=== PATIENT | female | born 1960 | race Caucasian/White ===

== ENCOUNTER → 2016-05-07 | Outpatient (REF) | payer MEDICARE, OTHER ==
[~2016-05-07] MED LIST: /AUGM875TA; /PANT40TA; ADVIL; ALDA25TA2; ASPI1TAB PO; CALCIUM CARBONATE; CHOLECALCIFEROL; DEMA100T; FAMO20TA2; FOLI1TAB; HYDR25TA6; HYDROCODONE; IBUPROFEN; IRON CR; IRONTAB3; K-TA10TA; LASI20TA; LASI40TA; LEVO25TABR; LEVO75TA2; LEVO75TA4 PO; LEVO88TA4; LOPR50TA; MEDR8TAB; PENI500T; PRED10TA2 PO; PRED20TA; PRED50TA2 PO; PRED5TAB; PROCHLORPERAZINE; RENA800T; RITU10VLL IV; SODIUM BICARBONATE; SYNT88TA2 PO; THERGRAN; TORSEMIDE; TRAM50TA2; TRIPLE OMEGA; VITA400C; VITAMIN D; [UNRECOGNIZED DRUG - CODE]; patanol
[2016-05-07 13:06] LABS: RETIC HEMOGLOBIN CONTENT CHr 30.1 PG (24-36); RETICULOCYTE % ADVIA2120 1.2 % (0.5-1.5)
[2016-05-07 19:41] LABS: IMMUNOGLOBULIN A 52.1 MG/DL (70-400)
[2016-05-07 20:52] LABS: IMMUNOGLOBULIN M 16.5 MG/DL (40-230)
[2016-05-09 00:06] LABS: % CD3+ LYMPHS 89.5 % (57.5-86.2); %CD3+CD4+CD8+ 0.6 % (Not Estab.); %CD3+CD4+CD8- 66.4 % (Not Estab.); %CD3+CD4-CD8+ 21.8 % (Not Estab.); %CD3+CD4-CD8- 0.6 % (Not Estab.); %CD3+CD56+CD16+ 4.1 % (Not Estab.); ABS CD3+CD4+CD8+ 6 /uL (Not Estab.); ABS CD3+CD4+CD8- 664 /uL (Not Estab.); ABS CD3+CD4-CD8+ 218 /uL (Not Estab.); ABS CD3+CD4-CD8- 6 /uL (Not Estab.); ABS CD3+CD56+CD16+ 41 /uL (Not Estab.); ABSOLUTE CD4 HELPER 671 /uL (359-1519); BASOPHILS 1 % (.); CD4/CD8 NYSDOH RATIO 3.05 (Not Estab.); EOSINOPHILS 2 % (.); HCT 46.2 % (34.0-46.6); HGB 15.4 g/dL (11.1-15.9); LYMPHOCYTES 23 % (.); MONOCYTES ABSOLUTE 0.5 x10E3/uL (0.1-0.9); WBC 4.4 x10E3/uL (3.4-10.8)
== END ==
LOC: M LAB REF 12:38
PROVIDERS: ATTEND Internal Medicine Medical Oncology
DX: D47.Z2 Castleman disease (principal); M06.9 Rheumatoid arthritis, unspecified; D64.9 Anemia, unspecified

== ENCOUNTER → 2016-07-02 | Outpatient (REF) | payer MEDICARE, OTHER ==
[2016-07-02 14:27] LABS: IMMUNOGLOBULIN A 54.3 MG/DL (70-400)
[2016-07-02 15:23] LABS: IMMUNOGLOBULIN M 16.1 MG/DL (40-230)
== END ==
LOC: M LAB REF 12:22
PROVIDERS: ATTEND Internal Medicine Medical Oncology
DX: M35.9 Systemic involvement of connective tissue, unspecified (principal)

== ENCOUNTER → 2016-09-06 | Outpatient (REF) | payer MEDICARE, OTHER ==
[2016-09-06 12:54] LABS: MEAN CORPUSCULAR HEMOGLOBIN 29.1 pg (27.0-33.0); MEAN CORPUSCULAR HGB CONC 32.9 g/dl (32.0-36.5); MEAN CORPUSCULAR VOLUME 88.6 fl (80.0-96.0); RED CELL DISTRIBUTION WIDTH 12.3 % (11.5-14.5); WHITE BLOOD COUNT 4.5 K/mm3 (4.0-10.0)
[2016-09-06 13:11] LABS: ALBUMIN 4.4 GM/DL (3.2-5.2); ALBUMIN/GLOBULIN RATIO 1.83 (1.00-1.93); ALKALINE PHOSPHATASE 61 U/L (45-117); ALT/SGPT 28 U/L (12-78); ANION GAP 11 MEQ/L (8-16); AST/SGOT 21 U/L (15-37); BILIRUBIN,TOTAL 0.7 MG/DL (0.2-1.0); BLOOD UREA NITROGEN 14 MG/DL (7-18); CALCIUM LEVEL 9.1 MG/DL (8.5-10.1); CARBON DIOXIDE LEVEL 22 MEQ/L (21-32); CHLORIDE LEVEL 108 MEQ/L (98-107); CHOLESTEROL LEVEL 251 MG/DL (<200); CREATININE FOR GFR 0.74 MG/DL (0.55-1.02); GLOMERULAR FILTRATION RATE > 60.0 (>51); GLUCOSE, FASTING 91 MG/DL (70-105); POTASSIUM SERUM 4.4 MEQ/L (3.5-5.1); SODIUM LEVEL 141 MEQ/L (136-145); TOTAL PROTEIN 6.8 GM/DL (6.4-8.2); TRIGLYCERIDES LEVEL 136 MG/DL (<150)
== END ==
LOC: M SFHCPLAZ 07:58
PROVIDERS: ATTEND Family Medicine
DX: D75.1 Secondary polycythemia (principal); Z13.220 Encounter for screening for lipoid disorders; N18.2 Chronic kidney disease, stage 2 (mild); E03.9 Hypothyroidism, unspecified

== ENCOUNTER → 2017-05-01 | Outpatient (REF) | payer MEDICARE, OTHER ==
[2017-05-01 14:39] LABS: IMMUNOGLOBULIN G 499 MG/DL (681-1648)
== END ==
LOC: M LAB REF 13:33
DX: D47.Z2 Castleman disease (principal); M06.9 Rheumatoid arthritis, unspecified
CPT/HCPCS: 82784

== ENCOUNTER → 2017-09-29 | Outpatient (REF) | payer MEDICARE, OTHER ==
[2017-09-29 19:10] LABS: IMMUNOGLOBULIN G 434 MG/DL (681-1648)
== END ==
LOC: M LAB REF 18:09
DX: D59.1 Other autoimmune hemolytic anemias (principal); D47.Z2 Castleman disease; M06.9 Rheumatoid arthritis, unspecified
CPT/HCPCS: 82784

== ENCOUNTER → 2017-10-16 | Outpatient (REF) | payer MEDICARE, OTHER ==
[2017-10-16 12:58] LABS: HEMATOCRIT 44.9 % (36.0-47.0); HEMOGLOBIN 14.3 g/dl (12.0-15.5); MEAN CORPUSCULAR HEMOGLOBIN 27.7 pg (27.0-33.0); MEAN CORPUSCULAR HGB CONC 31.8 g/dl (32.0-36.5); PLATELET COUNT, AUTOMATED 273 10^3/uL (150-450); RED BLOOD COUNT 5.16 10^6/uL (4.00-5.40); RED CELL DISTRIBUTION WIDTH 12.8 % (11.5-14.5); WHITE BLOOD COUNT 5.6 10^3/uL (4.0-10.0)
[2017-10-16 13:19] LABS: ANION GAP 7 MEQ/L (8-16); BLOOD UREA NITROGEN 14 MG/DL (7-18); CALCIUM LEVEL 8.8 MG/DL (8.5-10.1); CARBON DIOXIDE LEVEL 27 MEQ/L (21-32); CHLORIDE LEVEL 108 MEQ/L (98-107); CREATININE FOR GFR 0.65 MG/DL (0.55-1.30); GLOMERULAR FILTRATION RATE > 60.0 (>51); GLUCOSE, FASTING 80 MG/DL (70-100); PHOSPHORUS LEVEL 3.7 MG/DL (2.5-4.9); POTASSIUM SERUM 4.2 MEQ/L (3.5-5.1); SODIUM LEVEL 142 MEQ/L (136-145); THYROID STIMULATING HORMONE 0.233 uIU/ML (0.358-3.740)
== END ==
LOC: M LABDRWAD 12:20
DX: D75.1 Secondary polycythemia (principal); N18.2 Chronic kidney disease, stage 2 (mild); E03.9 Hypothyroidism, unspecified
CPT/HCPCS: 84443

== ENCOUNTER → 2018-03-09 | Outpatient (REF) | payer MEDICARE, OTHER ==
[2018-03-09 13:55] LABS: FREE T4 1.21 NG/DL (0.76-1.46); THYROID STIMULATING HORMONE 0.249 uIU/ML (0.358-3.740)
== END ==
LOC: M SFHCADAM 09:57
DX: E03.9 Hypothyroidism, unspecified (principal)
CPT/HCPCS: 84443

== ENCOUNTER → 2018-06-12 | Outpatient (REF) | payer MEDICARE, OTHER ==
[2018-06-12 12:49] LABS: FREE T4 1.31 NG/DL (0.76-1.46); THYROID STIMULATING HORMONE 0.789 uIU/ML (0.358-3.740)
== END ==
LOC: M SFHCADAM 09:34
PROVIDERS: ATTEND Family Medicine
DX: E03.9 Hypothyroidism, unspecified (principal)

== ENCOUNTER → 2018-12-09 | Outpatient (CLI) | payer MEDICARE, OTHER ==
[~2018-12-09] MED LIST changes: -/PANT40TA; +ALCO1MED8; +ALEV220T22 PO; -ASPI1TAB PO; +ASPI81TA26 PO; +BD P0.9I2 IV; +C 50TAB PO; +HEPA100I8 IV; +IPRA0.00 INH; +LEVO50TA45 PO; +PROT1TAB2; +VENTAER INH; +VITA100066 PO; +[UNRECOGNIZED DRUG - SUPPLY]
[2018-12-09 12:55] LABS: APPEARANCE, URINE CLEAR (CLEAR); BACTERIA, URINE AUTO NEGATIVE (NEGATIVE); BILIRUBIN, URINE AUTO NEGATIVE (NEGATIVE); BLOOD, URINE BLOOD NEGATIVE (NEGATIVE); COLOR, URINE STRAW (YELLOW); GLUCOSE, URINE (UA) AUTO NEGATIVE (NEGATIVE); KETONE, URINE AUTO NEGATIVE (NEGATIVE); LEUKOCYTE ESTERASE, URINE AUTO NEGATIVE (NEGATIVE); NITRITE, URINE AUTO NEGATIVE (NEGATIVE); PROTEIN, URINE AUTO NEGATIVE (NEGATIVE); RBC, URINE AUTO 0 /HPF (0-3); SPECIFIC GRAVITY URINE AUTO 1.001 (1.002-1.035); SQUAMOUS EPITHELIAL CELL UR AU 0 /HPF (0-6); UROBILINOGEN, URINE AUTO 0.2 mg/dL (0.0-2.0); WBC, URINE AUTO 0 /HPF (0-3)
[2018-12-09 13:18] LABS: ALBUMIN 4.1 GM/DL (3.2-5.2); BLOOD UREA NITROGEN 16 MG/DL (7-18); CARBON DIOXIDE LEVEL 25 MEQ/L (21-32); CHLORIDE LEVEL 106 MEQ/L (98-107); CREATININE FOR GFR 0.85 MG/DL (0.55-1.30); GLOMERULAR FILTRATION RATE > 60.0 (>51); GLUCOSE, FASTING 78 MG/DL (70-100); PHOSPHORUS LEVEL 3.8 MG/DL (2.5-4.9); POTASSIUM SERUM 4.7 MEQ/L (3.5-5.1); SODIUM LEVEL 140 MEQ/L (136-145)
[2018-12-09 13:38] LABS: PTH INTACT 59.9 PG/ML (18.5-88.0)
== END ==
LOC: M LABDRWAD 10:19
PROVIDERS: ATTEND Internal Medicine Nephrology
DX: N18.2 Chronic kidney disease, stage 2 (mild) (principal); D63.8 Anemia in other chronic diseases classified elsewhere; N25.81 Secondary hyperparathyroidism of renal origin; E55.9 Vitamin D deficiency, unspecified

== ENCOUNTER → 2018-12-09 | Outpatient (REF) | payer MEDICARE, OTHER ==
[~2018-12-09] MED LIST changes: -ALCO1MED8; -ALEV220T22 PO; -BD P0.9I2 IV; -C 50TAB PO; -HEPA100I8 IV; -IPRA0.00 INH; -LEVO50TA45 PO; -VENTAER INH; -VITA100066 PO; -[UNRECOGNIZED DRUG - SUPPLY]
[2018-12-09 12:52] LABS: HEMATOCRIT 51.3 % (36.0-47.0); HEMOGLOBIN 16.2 g/dl (12.0-15.5); MEAN CORPUSCULAR HEMOGLOBIN 27.1 pg (27.0-33.0); MEAN CORPUSCULAR HGB CONC 31.6 g/dl (32.0-36.5); MEAN CORPUSCULAR VOLUME 85.8 fl (80.0-96.0); PLATELET COUNT, AUTOMATED 141 10^3/uL (150-450); RED BLOOD COUNT 5.98 10^6/uL (4.00-5.40); WHITE BLOOD COUNT 6.3 10^3/uL (4.0-10.0)
[2018-12-09 13:14] LABS: ERYTHROCYTE SEDIMENTATION RATE 2 mm/hr (0-30)
[2018-12-09 14:00] LABS: ALBUMIN 4.2 GM/DL (3.2-5.2); ALT/SGPT 28 U/L (12-78); BILIRUBIN,TOTAL 0.7 MG/DL (0.2-1.0); BLOOD UREA NITROGEN 16 MG/DL (7-18); C REACTIVE PROTEIN QUANTITATIV 0.56 MG/DL (0.00-0.30); CALCIUM LEVEL 9.2 MG/DL (8.5-10.1); CARBON DIOXIDE LEVEL 28 MEQ/L (21-32); CHLORIDE LEVEL 107 MEQ/L (98-107); CHOLESTEROL LEVEL 192 MG/DL (<200); CHOLESTEROL RISK RATIO 3.764 (<5); CREATININE FOR GFR 0.81 MG/DL (0.55-1.30); FREE T4 1.31 NG/DL (0.76-1.46); GLOMERULAR FILTRATION RATE > 60.0 (>51); GLUCOSE, FASTING 80 MG/DL (70-100); HDL CHOLESTEROL 51 MG/DL (>40); LDL CHOLESTEROL 122 MG/DL (<100); NON-HDL-C 141 MG/DL; POTASSIUM SERUM 4.5 MEQ/L (3.5-5.1); SODIUM LEVEL 139 MEQ/L (136-145); TOTAL 25(OH) VITAMIN D 32.9 NG/ML (30.0-100.0); TOTAL PROTEIN 6.8 GM/DL (6.4-8.2); TRIGLYCERIDES LEVEL 93 MG/DL (<150)
== END ==
LOC: M SFHCADAM 10:14
PROVIDERS: ATTEND Family Medicine
DX: D75.1 Secondary polycythemia (principal); E78.00 Pure hypercholesterolemia, unspecified; E55.9 Vitamin D deficiency, unspecified; N18.2 Chronic kidney disease, stage 2 (mild); R59.9 Enlarged lymph nodes, unspecified; M06.041 Rheumatoid arthritis without rheumatoid factor, right hand; E03.9 Hypothyroidism, unspecified; D63.8 Anemia in other chronic diseases classified elsewhere; N25.81 Secondary hyperparathyroidism of renal origin

== ENCOUNTER 2018-12-31 10:24 | Emergency (ER) | payer MEDICARE, OTHER ==
[~2018-12-31] VITALS: Ht 165.1 cm; Wt 61.8 kg
[2018-12-31 11:27] LABS: BASO # 0.1 10^3/uL (0.0-0.2); BASO % 1.1 % (0.0-1.0); EOS # 0.2 10^3/uL (0.0-0.5); EOS % 2.5 % (0.0-3.0); HEMATOCRIT 48.3 % (36.0-47.0); HEMOGLOBIN 15.4 g/dl (12.0-15.5); LYMPH # 1.3 10^3/uL (1.5-5.0); LYMPH % 17.1 % (24.0-44.0); MEAN CORPUSCULAR HEMOGLOBIN 27.8 pg (27.0-33.0); MEAN CORPUSCULAR HGB CONC 31.9 g/dl (32.0-36.5); MEAN CORPUSCULAR VOLUME 87.2 fl (80.0-96.0); MONO # 0.9 10^3/uL (0.0-0.8); MONO % 11.4 % (0.0-5.0); NEUTROPHILS # 5.1 10^3/uL (1.5-8.5); NEUTROPHILS % 67.6 % (36.0-66.0); PLATELET COUNT, AUTOMATED 191 10^3/uL (150-450); RED BLOOD COUNT 5.54 10^6/uL (4.00-5.40); WHITE BLOOD COUNT 7.6 10^3/uL (4.0-10.0)
[2018-12-31 11:52] LABS: ALBUMIN 3.9 GM/DL (3.2-5.2); ALT/SGPT 21 U/L (12-78); BILIRUBIN,TOTAL 0.5 MG/DL (0.2-1.0); BLOOD UREA NITROGEN 22 MG/DL (7-18); C REACTIVE PROTEIN QUANTITATIV 0.76 MG/DL (0.00-0.30); CARBON DIOXIDE LEVEL 30 MEQ/L (21-32); CHLORIDE LEVEL 105 MEQ/L (98-107); CREATININE FOR GFR 0.73 MG/DL (0.55-1.30); GLOMERULAR FILTRATION RATE > 60.0 (>51); GLUCOSE, FASTING 89 MG/DL (70-100); POTASSIUM SERUM 4.7 MEQ/L (3.5-5.1); SODIUM LEVEL 139 MEQ/L (136-145); TOTAL PROTEIN 6.2 GM/DL (6.4-8.2)
--- NOTE | 2018-12-31 12:40 | REP ---
Left lower extremity deep vein duplex ultrasound: The deep veins demonstrate normal compression, normal Doppler color flow and normal Doppler waveforms with respiration and augmentation from the popliteal vein to the common femoral vein. Impression: There is no lower extremity deep vein thrombus. Electronically Signed by Shay Fraga MD 12/31/2018 12:31 P
--- NOTE | 2018-12-31 12:47 | REP ---
ULTRASOUND LEFT ANKLE SOFT TISSUES: Real-time sonographic evaluation of the left ankle soft tissues performed. There are echogenic areas scattered throughout the soft tissues with marked distal acoustic shadowing. These may represent calcifications. No focal fluid collection is seen. IMPRESSION: Possible soft tissue calcifications. No visible fluid collection or abscess. Electronically Signed by Shay Bullock MD 12/31/2018 05:38 P
[2018-12-31 13:22] LABS: ERYTHROCYTE SEDIMENTATION RATE 6 mm/hr (0-30)
[2018-12-31 13:30] VITALS: BP 100/55
== END 2018-12-31 13:31 | disposition home or self-care (01) ==
LOC: M ED 10:24
DX: M79.9 Soft tissue disorder, unspecified (principal); D47.Z2 Castleman disease; Z88.0 Allergy status to penicillin; Z88.1 Allergy status to other antibiotic agents; Z88.2 Allergy status to sulfonamides; Z88.6 Allergy status to analgesic agent; Z79.899 Other long term (current) drug therapy; Z83.79 Family history of other diseases of the digestive system

== ENCOUNTER → 2019-02-10 | Outpatient (CLI) | payer MEDICARE, OTHER ==
[2019-02-10 15:03] LABS: BASO # 0.1 10^3/uL (0.0-0.2); BASO % 1.3 % (0.0-1.0); EOS # 0.2 10^3/uL (0.0-0.5); EOS % 2.5 % (0.0-3.0); HEMATOCRIT 46.7 % (36.0-47.0); HEMOGLOBIN 15.1 g/dl (12.0-15.5); LYMPH # 1.7 10^3/uL (1.5-5.0); LYMPH % 21.1 % (24.0-44.0); MEAN CORPUSCULAR HEMOGLOBIN 27.3 pg (27.0-33.0); MEAN CORPUSCULAR HGB CONC 32.3 g/dl (32.0-36.5); MEAN CORPUSCULAR VOLUME 84.3 fl (80.0-96.0); MONO # 0.9 10^3/uL (0.0-0.8); MONO % 11.5 % (0.0-5.0); NEUTROPHILS # 5.2 10^3/uL (1.5-8.5); NEUTROPHILS % 63.4 % (36.0-66.0); PLATELET COUNT, AUTOMATED 201 10^3/uL (150-450); RED BLOOD COUNT 5.54 10^6/uL (4.00-5.40); WHITE BLOOD COUNT 8.2 10^3/uL (4.0-10.0)
[2019-02-10 15:43] LABS: BLOOD UREA NITROGEN 21 MG/DL (7-18); CARBON DIOXIDE LEVEL 25 MEQ/L (21-32); CHLORIDE LEVEL 107 MEQ/L (98-107); CREATININE FOR GFR 0.69 MG/DL (0.55-1.30); GLOMERULAR FILTRATION RATE > 60.0 (>51); GLUCOSE, FASTING 94 MG/DL (70-100); NT-PRO BNP 352 PG/ML (<125); POTASSIUM SERUM 4.2 MEQ/L (3.5-5.1); SODIUM LEVEL 140 MEQ/L (136-145)
--- NOTE | 2019-02-10 15:59 | REP ---
Clinical: Cough. Technique: PA and lateral. Comparison: 12/12/2011. Findings: Diffuse bilateral reticulonodular infiltrates are appreciated with possible small pleural reactions and left apical density/mass. No pneumothorax. Cardiac silhouette is normal. Skeletal structures are intact. Impression: Diffuse reticulonodular infiltrates with small pleural reactions and right upper lobe mass. Electronically Signed by Dexter Arriaga MD 02/10/2019 03:13 P
== END ==
LOC: M LAB 14:23
PROVIDERS: ATTEND Nurse Practitioner Family
DX: R91.8 Other nonspecific abnormal finding of lung field (principal); R06.02 Shortness of breath

== ENCOUNTER → 2019-02-11 | Outpatient (CLI) | payer MEDICARE, OTHER ==
[~2019-02-11] MED LIST changes: +ISOVUE-370 76% 100ML VIAL (Q9967) As Ordered ONE
--- NOTE | 2019-02-11 10:25 | REP ---
Clinical: Abnormal chest x-ray findings and shortness of breath and elevated D-dimer levels. Technique: Axial contrast enhanced images from the thoracic inlet to the upper abdomen using pulmonary embolus technique with multiplanar re-formations. 100 ml Isovue 370 intravenous contrast material administered without complication. Findings: No pulmonary embolus. Relatively normal thoracic aorta without aneurysm or dissection. Heart and pericardium are grossly normal. A large left apical mass measuring greater than 5.4 cm diameter is appreciated along with similar mass-like area involving the anterior mediastinum/anteromedial left upper lobe measuring roughly 5.5 cm maximal diameter. Diffuse reticular nodular infiltrates with innumerable bilateral pulmonary nodules and small areas of ill-defined consolidation including left lower lobe consolidation is appreciated. Marked mediastinal and hilar adenopathy noted. No effusion. No pneumothorax. Musculoskeletal structures appear intact. Limited upper abdomen demonstrates normal bilateral adrenal glands. Impression: 1. Findings most compatible with lymphangioma carcinomatosis and multiple areas of mass / consolidation as described above suggesting larger areas of neoplasm. A associated severe mediastinal and hilar adenopathy also identified. Electronically Signed by Dexter Arriaga MD 02/11/2019 10:16 A
== END ==
LOC: M RAD 09:28
PROVIDERS: ATTEND Nurse Practitioner Family
DX: R79.89 Other specified abnormal findings of blood chemistry (principal)
CPT/HCPCS: 71275; Q9967

== ENCOUNTER 2019-02-26 08:25 | Emergency (ER) | payer MEDICARE, OTHER ==
[~2019-02-26] VITALS: Ht 165.1 cm; Wt 61.8 kg
[~2019-02-26 08:25] MED LIST changes: -ISOVUE-370 76% 100ML VIAL (Q9967) As Ordered ONE
[2019-02-26 09:48] LABS: BASO # 0.2 10^3/uL (0.0-0.2); BASO % 1.7 % (0.0-1.0); EOS # 0.4 10^3/uL (0.0-0.5); EOS % 4.1 % (0.0-3.0); HEMATOCRIT 45.6 % (36.0-47.0); HEMOGLOBIN 14.1 g/dl (12.0-15.5); LYMPH # 1.9 10^3/uL (1.5-5.0); LYMPH % 22.1 % (24.0-44.0); MEAN CORPUSCULAR HEMOGLOBIN 26.8 pg (27.0-33.0); MEAN CORPUSCULAR HGB CONC 30.9 g/dl (32.0-36.5); MEAN CORPUSCULAR VOLUME 86.5 fl (80.0-96.0); MONO % 11.1 % (0.0-5.0); NEUTROPHILS # 5.3 10^3/uL (1.5-8.5); NEUTROPHILS % 60.4 % (36.0-66.0); PLATELET COUNT, AUTOMATED 347 10^3/uL (150-450); RED BLOOD COUNT 5.27 10^6/uL (4.00-5.40); WHITE BLOOD COUNT 8.8 10^3/uL (4.0-10.0)
[2019-02-26 10:18] LABS: ALBUMIN 4.1 GM/DL (3.2-5.2); ALT/SGPT 20 U/L (12-78); BILIRUBIN,DIRECT 0.2 MG/DL (0.0-0.2); BILIRUBIN,TOTAL 0.8 MG/DL (0.2-1.0); BLOOD UREA NITROGEN 18 MG/DL (7-18); CARBON DIOXIDE LEVEL 29 MEQ/L (21-32); CHLORIDE LEVEL 107 MEQ/L (98-107); CREATININE FOR GFR 0.72 MG/DL (0.55-1.30); GLOMERULAR FILTRATION RATE > 60.0 (>51); GLUCOSE, FASTING 85 MG/DL (70-100); POTASSIUM SERUM 4.6 MEQ/L (3.5-5.1); SODIUM LEVEL 141 MEQ/L (136-145); THYROXINE (T4) 12.4 UG/DL (4.5-12.0); TOTAL PROTEIN 6.5 GM/DL (6.4-8.2)
--- NOTE | 2019-02-26 10:36 | REP ---
Chest x-ray: Two views. History: Dyspnea and cough. Comparison chest x-ray: February 10, 2019. Findings: Diffuse nodular infiltrate pattern persists throughout the lung whitt with a large mass-like opacity again seen in the left upper lobe. There is blunting of the pleural angles indicating slight amounts of pleural fluid or pleural thickening. The findings are essentially unchanged. No new area of consolidation or mass effect is seen. Heart is not enlarged. Impression: Extensive nodular and reticulonodular disease throughout the lung parenchyma bilaterally. Large mass-like opacity in the left upper lobe. Findings essentially unchanged from February 10, 2019. Electronically Signed by Brendan Mora MD 02/26/2019 11:10 A
[2019-02-26 12:20] VITALS: BP 102/58
[2019-02-26] MEDS ORDERED: VENTAER INH (13:14)
--- NOTE | 2019-02-26 19:05 | ECGEPIP ---
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
== END 2019-02-26 12:45 | disposition home or self-care (01) ==
LOC: M ED 08:25
DX: R91.1 Solitary pulmonary nodule (principal); R06.00 Dyspnea, unspecified; Z79.899 Other long term (current) drug therapy; Z88.0 Allergy status to penicillin; Z88.1 Allergy status to other antibiotic agents; Z88.2 Allergy status to sulfonamides; Z88.8 Allergy status to other drugs, medicaments and biological substances

== ENCOUNTER 2019-03-10 08:04 | Day surgery (SDC) | payer MEDICARE, OTHER ==
[~2019-03-10] VITALS: Ht 165.1 cm; Wt 59.0 kg
[~2019-03-10 08:04] MED LIST changes: +ALEV220T22 PO; +IPRA0.00 IN; +LIDOCAINE 2% INJ 100 MG/5 ML SDV (FOR ANES.) As Ordered ONE; +LR 1,000 ML IV ONE; +MIDAZOLAM INJ 2 MG/2 ML VIAL (J2250) As Ordered ONE; +ONDANSETRON 4MG/2ML VIAL (J2405) As Ordered ONE; +PROPOFOL 200 MG/20 ML VIAL As Ordered ONE; +ROCURONIUM BROMIDE 50 MG/5 ML VIAL As Ordered ONE; +SUGAMMADEX SODIUM 500 MG/5 ML VIAL (BRIDION) As Ordered ONE; +VENTAER INH; +dexameTHASONE 4 MG/ML 1ML VIAL (J1100) As Ordered ONE; +fentaNYL 100 MCG/2 ML INJECTION (J3010) As Ordered ONE
[2019-03-10] MEDS ORDERED: CETACAINE SPRAY 5GM As Ordered ONE (09:02)
[2019-03-10] MEDS ORDERED: EMLA CREAM 5GM (LIDOCAINE/PRILOCAINE) As Ordered ONE (09:02)
[2019-03-10] MEDS ORDERED: THROMBIN SOLN 5,000 UNITS VIAL As Ordered ONE (09:35)
[2019-03-10] MEDS ORDERED: LIDOCAINE VISCOUS 2% SOLN 15ML UDC As Ordered ONE (09:36)
[2019-03-10] MEDS ORDERED: LIDOCAINE 1% SDV INJ 30 ML VIAL As Ordered ONE (09:36)
[2019-03-10] MEDS ORDERED: EPINEPHrine 1MG/10ML SYRINGE 1.5IN As Ordered ONE (09:40)
[2019-03-10] MEDS ORDERED: LIDOCAINE 4% TOPICAL SOLN 50 ML BTL As Ordered ONE (09:40)
--- NOTE | 2019-03-10 11:11 | REP ---
C-ARM VIEWS LEFT CHEST: Multiple C-arm views of the left chest performed during bronchoscopy. Bronchoscope is seen with the distal tip extending into the left upper lobe region. Fluoroscopy time 1 minute, 22 seconds. Electronically Signed by Shay Bullock MD 03/10/2019 12:23 P
--- NOTE | 2019-03-10 11:34 | REP ---
Clinical: Status post bronchoscopy. Comparison: 02/26/2019. Findings: Diffuse reticulonodular infiltrates with right pleural effusion are again noted and unchanged. No pneumothorax. Left upper lobe opacity consistent with mass again noted. Skeletal structures stable. Impression: Stable left upper lobe opacity/mass, right pleural effusion and diffuse bilateral reticulonodular infiltrates are read Electronically Signed by Dexter Arriaga MD 03/10/2019 11:25 A
[2019-03-10] MEDS ORDERED: ONDANSETRON 4MG/2ML VIAL (J2405) IV PRN (11:45)
[2019-03-10] MEDS ORDERED: PERCOCET 5MG/325MG TAB PO PRN (11:45)
[2019-03-10] MEDS ORDERED: fentaNYL 100 MCG/2 ML INJECTION (J3010) IV PRN (11:45)
[2019-03-10] MEDS ORDERED: LR 1,000 ML IV SCH (11:45)
[2019-03-10] MEDS ORDERED: IPRATROPIUM 0.5MG/ALBUTEROL 2.5MG INH SOL UD 3ML (DUONEB)(J7620) As Ordered ONE (12:06)
[2019-03-10] MEDS ORDERED: ALBUTEROL SULFATE 2.5 MG/0.5 ML INH NEB SOLN As Ordered ONE (12:07)
[2019-03-10 12:20] LABS: APPEARANCE HAZY (CLEAR); COLOR PINK (COLORLESS); SOURCE LEFT UPPER LOBE
[2019-03-10] MEDS ORDERED: ALBUTEROL SULFATE 2.5 MG/0.5 ML INH NEB SOLN INH ONE (12:30)
[2019-03-10 12:55] VITALS: BP 98/57
[2019-03-10 13:55] LABS: MONOCYTES/MACROPHAGES, BAL 13 %
--- NOTE | 2019-03-11 15:22 | ROOR ---
Patient Name: Jackie Willett Procedure Date: 03/10/2019 9:03 AM Date of : 1960 Admit Type: Outpatient Age: 58 Note Status: Finalized Attending MD: Yamila Padilla MD Procedure: Bronchoscopy Indications: Left upper lobe mass, Mediastinal adenopathy, Paratracheal adenopathy, Diffuse parenchymal lung disease Providers: Yamila Padilla MD (Doctor) Referring MD: MARGARETH TEIXEIRA MD (Referring MD) Requesting Physician: Medicines: General Anesthesia, Cetacaine topical Complications: No immediate complications. Estimated blood loss: Minimal Procedure: Pre-Anesthesia Assessment: - Prior to the procedure, a History and Physical was performed, and patient medications and allergies were reviewed. The patient's tolerance of previous anesthesia was also reviewed. The risks and benefits of the procedure and the sedation options and risks were discussed with the patient. All questions were answered, and informed consent was obtained. Prior Anticoagulants: The patient has taken no previous anticoagulant or antiplatelet agents. ASA Grade Assessment: III - A patient with severe systemic disease. After reviewing the risks and benefits, the patient was deemed in satisfactory condition to undergo the procedure. The Bronchoscope was introduced through the mouth, via the endotracheal tube (the patient was intubated for the procedure) and advanced to the tracheobronchial tree of both lungs. The procedure was accomplished without difficulty. The patient tolerated the procedure well. Findings: The endotracheal tube is in good position. The visualized portion of the trachea is of normal caliber. The ryan is sharp. The tracheobronchial tree was examined to at least the first subsegmental level. Bronchial mucosa was normal. There were some thick white mucoid secretions noted throughout lungs but no endobronchial lesions. In the left upper lobe there was anatomic variant with three segmental bronchi noted. Electromagnetic navigation bronchoscopy utilizing the Celatonsion system with iLogic upgrade was performed. The CT scan was used for planning purposes. A virtual bronchoscopic image was generated using the planning software and the ryan, left main bronchus ryan, left lower lobe basilar segment, right upper lobe, right middle lobe and right lower lobe basilar segment registration points were marked on the virtual image. The target in the apical-posterior segment of the left upper lobe was marked. A mass was found and a pathway was created. After a complete airway exam, the locatable guide/extended working channel was inserted and an automatic registration was performed by advancing the scope through the ryan, left main bronchus ryan, left lower lobe basilar segment, right upper lobe, right middle lobe and right lower lobe basilar segment. The navigation phase was then begun to locate the target lesion(s). Positioning was confirmed using fluoroscopy. The locatable guide was removed from the extended working channel. Fluoroscopy guided transbronchial brushings of a mass were obtained in the apical-posterior segment of the left upper lobe with a needle brush and sent for routine cytology. Transbronchial brushing technique was selected because the sampling site was not visible endoscopically. Transbronchial needle aspirations of a mass were performed in the apical-posterior segment of the left upper lobe using a GenCut needle and sent for routine cytology. The procedure was guided by fluoroscopy. Transbronchial needle aspiration technique was selected because the sampling site was not visible endoscopically. Transbronchial biopsies of a mass were performed in the apical-posterior segment of the left upper lobe using forceps and sent for histopathology examination. The procedure was guided by fluoroscopy. Transbronchial biopsy technique was selected because the sampling site was not visible endoscopically. Bronchoalveolar lavage was performed in the NEAL apical posterior segments (B1 & B2) of the lung and sent for cell count, bacterial culture, and fungal & AFB analysis and cytology. The return was blood-tinged. Mucous plugs were present in the return fluid. An endobronchial ultrasound endoscope was utilized in order to assist with fine needle aspiration in the subcarinal area. Transbronchial needle aspirations of a lymph node were performed in the subcarinal area using an Olympus EBUS-TBNA 21 gauge needle and sent for routine cytology. The procedure was guided by ultrasound. Transbronchial needle aspiration technique was selected because the sampling site was not visible endoscopically. Estimated blood loss: minimal. Impression: - Left upper lobe mass - Mediastinal adenopathy - Paratracheal adenopathy - Diffuse parenchymal lung disease - The airway examination was normal. - Electromagnetic navigation bronchoscopy was performed. - Transbronchial brushings were obtained. - A transbronchial needle aspiration was performed. - Transbronchial lung biopsies were performed. - Bronchoalveolar lavage was performed. - Endobronchial ultrasound was performed. - A transbronchial needle aspiration was performed of subcarinal lymph node. Recommendation: - Follow up with bronchoscopist as previously scheduled. Attending Participation: I personally performed the entire procedure. Yamila Padilla MD 03/11/2019 3:22:44 PM Number of Addenda: 0 Note Initiated On: 03/10/2019 9:03 AM
== END 2019-03-10 13:40 | disposition home or self-care (01) ==
LOC: M SDC 08:04
PROVIDERS: ATTEND Internal Medicine Pulmonary Disease
DX: R91.8 Other nonspecific abnormal finding of lung field (principal); R59.0 Localized enlarged lymph nodes; D47.Z2 Castleman disease; E03.9 Hypothyroidism, unspecified; N18.9 Chronic kidney disease, unspecified; Z92.21 Personal history of antineoplastic chemotherapy; Z88.0 Allergy status to penicillin; Z88.2 Allergy status to sulfonamides; Z88.8 Allergy status to other drugs, medicaments and biological substances; Z79.899 Other long term (current) drug therapy
CPT/HCPCS: 31623; 31624; 31627; 31628; 31629; 31652; 71045; 76000; 87070; 87102; 87116; 87205; 87206; 88104; 88108; 88173; 88305; 88313; 89051; J1100; J2250; J2405; J3010

== ENCOUNTER → 2019-03-24 | Outpatient (CLI) | payer MEDICARE, OTHER ==
[~2019-03-24] MED LIST changes: -LIDOCAINE 2% INJ 100 MG/5 ML SDV (FOR ANES.) As Ordered ONE; -LR 1,000 ML IV ONE; -MIDAZOLAM INJ 2 MG/2 ML VIAL (J2250) As Ordered ONE; -ONDANSETRON 4MG/2ML VIAL (J2405) As Ordered ONE; -PROPOFOL 200 MG/20 ML VIAL As Ordered ONE; -ROCURONIUM BROMIDE 50 MG/5 ML VIAL As Ordered ONE; -SUGAMMADEX SODIUM 500 MG/5 ML VIAL (BRIDION) As Ordered ONE; -dexameTHASONE 4 MG/ML 1ML VIAL (J1100) As Ordered ONE; -fentaNYL 100 MCG/2 ML INJECTION (J3010) As Ordered ONE
--- NOTE | 2019-03-25 10:28 | REP ---
PET/CT: HISTORY: Other nonspecific abnormal finding of the lung field. The patient has a history of Castleman disease and rheumatoid arthritis. Recent chest CT study demonstrate lung masses, nodules, and mediastinal adenopathy. Bronchoscopic biopsy is negative for malignancy. A multi-centric Castleman disease versus other. COMPARISONS: Comparison chest CT study February 11, 2019. Comparison abdomen CT September 02, 2013. TECHNIQUE: 46 minutes following the intravenous injection of a 8.21 mCi dose of F-18 FDG, three-dimensional PET scintigraphy is acquired from the skull base to the proximal thighs. Triplanar noncontrast CT scanning is acquired through the same anatomic range for attenuation correction, and image registration with scan parameters optimized to minimize radiation exposure to the patient. PET scintigraphy and CT datasets were fused and displayed on a workstation with multiplanar and projection display capability. PET/CT FINDINGS: There is some increased uptake in the retropharyngeal soft tissues, SUV 12.82 and in the tonsillar soft tissues bilaterally, 9.34 on the left and 8.86 on the right. This may be normal variant. There is hypermetabolic bilateral cervical lymphadenopathy, maximum standard uptake value ranging up to 5.22. There is minimally hypermetabolic uptake in the left supraclavicular lymph node, 3.73. Multifocal mediastinal and bilateral hilar lymphadenopathy is seen to be hypermetabolic, maximum standard uptake values ranging from 4.2 to 6.13. There is left axillary hypermetabolic otis activity, 3.16. Extensive multifocal pulmonary parenchymal nodular disease with confluent mass like opacities are seen. Increased metabolic activity is observed in these, maximum standard uptake value in the large left apical mass is 4.98. There is a focus of small nodular hypermetabolic uptake in the right apex, maximum SUV 4.21. There is a confluent opacity in the left lower lobe demonstrating maximum standard uptake value 3.22. Other smaller areas of nodular opacity show non-hypermetabolic FDP accumulation. In the abdomen and pelvis, there is normal distribution of radioactive tracer with no abnormal hypermetabolic uptake focus seen. Scan is otherwise unremarkable. IMPRESSION: Extensive otis and pulmonary parenchymal disease in the neck, left axilla, and chest. There are two confluent mass-like opacities in the lungs which display hypermetabolic range activity. There is extensive nodular pulmonary parenchymal disease which is not hypermetabolic. The degree of metabolic activity is mildly increased in the multiple sites of adenopathy, with the possible exception of bilateral tonsillar and retropharyngeal uptake. This latter finding can be normal variant. Electronically Signed by Brendan Mora MD 03/25/2019 01:07 P
== END ==
LOC: M PLARAD 11:23
PROVIDERS: ATTEND Internal Medicine Pulmonary Disease
DX: R91.8 Other nonspecific abnormal finding of lung field (principal)
CPT/HCPCS: 78815; A9552

== ENCOUNTER 2019-04-20 12:48 | Inpatient (IN) | payer MEDICARE, OTHER ==
[~2019-04-20] VITALS: Ht 165.1 cm; Wt 59.2 kg
[~2019-04-20 12:48] MED LIST changes: -IPRA0.00 IN; +IPRA0.00 INH
--- NOTE | 2019-04-20 13:45 | REP ---
Portable chest x-ray: Sitting AP view. History: Dyspnea and cough. Comparison study: March 10, 2019. Prior study from February 26, 2019 and February 10, 2019 is also reviewed. Findings: There is radiographic progression of the innumerable pulmonary parenchymal nodular densities present throughout the lung whitt bilaterally. There is a large confluent mass like opacity in the left upper lobe which may be slightly larger, 4.3 cm. There is confluent fullness in the right hilar region. There is a progressive opacity in the left mid lung zone. Impression: There is radiographic progression of the previously noted widespread pulmonary parenchymal nodular pattern suggestive of metastatic disease. Electronically Signed by Brendan Mora MD 04/20/2019 06:19 P
[2019-04-20 13:46] LABS: BASO # 0.2 10^3/uL (0.0-0.2); BASO % 2.1 % (0.0-1.0); EOS # 0.7 10^3/uL (0.0-0.5); EOS % 6.2 % (0.0-3.0); HEMATOCRIT 43.8 % (36.0-47.0); LYMPH # 2.6 10^3/uL (1.5-5.0); LYMPH % 22.9 % (24.0-44.0); MEAN CORPUSCULAR HEMOGLOBIN 27.8 pg (27.0-33.0); MEAN CORPUSCULAR VOLUME 87.1 fl (80.0-96.0); MONO # 1.1 10^3/uL (0.0-0.8); MONO % 9.7 % (0.0-5.0); NEUTROPHILS # 6.6 10^3/uL (1.5-8.5); NEUTROPHILS % 58.7 % (36.0-66.0); PLATELET COUNT, AUTOMATED 354 10^3/uL (150-450); RED BLOOD COUNT 5.03 10^6/uL (4.00-5.40); WHITE BLOOD COUNT 11.3 10^3/uL (4.0-10.0)
[2019-04-20] MEDS ORDERED: IPRATROPIUM 0.5MG/ALBUTEROL 2.5MG INH SOL UD 3ML (DUONEB)(J7620) NEB ONE (14:00)
[2019-04-20 14:05] LABS: INFLUENZA A AMPLIFICATION NEGATIVE (NEGATIVE); INFLUENZA B AMPLIFICATION NEGATIVE (NEGATIVE)
[2019-04-20 14:07] LABS: ALBUMIN 3.9 GM/DL (3.2-5.2); BILIRUBIN,DIRECT 0.2 MG/DL (0.0-0.2); BILIRUBIN,TOTAL 0.8 MG/DL (0.2-1.0); FREE T4 1.34 NG/DL (0.76-1.46); THYROID STIMULATING HORMONE 3.3 uIU/ML (0.358-3.740); TOTAL PROTEIN 6.5 GM/DL (6.4-8.2)
[2019-04-20 14:17] LABS: BLOOD UREA NITROGEN 19 MG/DL (7-18); CALCIUM LEVEL 9.2 MG/DL (8.5-10.1); CARBON DIOXIDE LEVEL 28 MEQ/L (21-32); CHLORIDE LEVEL 105 MEQ/L (98-107); CK-MB VALUE MASS < 1.0 NG/ML (<3.6); CPK CREATINE PHOSPHOKINASE 36 U/L (26-192); CREATININE FOR GFR 0.55 MG/DL (0.55-1.30); GLOMERULAR FILTRATION RATE > 60.0 (>51); GLUCOSE, FASTING 84 MG/DL (70-100); MB/CK RELATIVE INDEX 2.78 (< OR =4); POTASSIUM SERUM 4.3 MEQ/L (3.5-5.1); SODIUM LEVEL 141 MEQ/L (136-145); TROPONIN I < 0.02 NG/ML (< 0.10)
[2019-04-20 14:43] LABS: ABG pH (ARTERIAL) 7.442 UNITS (7.350-7.450)
[2019-04-20 14:44] LABS: ABG BASE EXCESS -0.4 (-2.0-2.0); ABG HCO3 23.2 MEQ/L (22.0-26.0); ABG O2 SATURATION 93.6 % (95.0-99.0); ABG PARTIAL PRESSURE CO2 34.8 mmHg (35.0-45.0); ABG PARTIAL PRESSURE O2 68.9 mmHg (75.0-100.0); ABG STANDARD HCO3 24.1 MEQ/L (22.0-26.0); ABG TOTAL CO2 24.3 MEQ/L (22.0-29.0)
--- NOTE | 2019-04-20 14:59 | REP ---
Duplex extremity venous ultrasound: Bilateral lower extremity veins. History: Lower extremity edema. Rule out DVT. Findings: The deep veins are anechoic and fully compressible from the groin to the popliteal fossa in the and right lower extremity. Color flow imaging is homogeneous. Spectral Doppler interrogation demonstrates intact respiratory variation in flow and normal manual augmentation of flow. There is no evidence of deep vein thrombosis. Impression: Negative bilateral lower extremity duplex venous ultrasound. No evidence of deep vein thrombosis. Electronically Signed by Brendan Mora MD 04/20/2019 02:51 P
[2019-04-20] MEDS ORDERED: BUDESONIDE 180MCG INHALER (PULMICORT FLEXHALER) INH ONE (15:15)
[2019-04-20] MEDS ORDERED: ISOVUE-370 76% 100ML VIAL (Q9967) As Ordered ONE (15:21)
[2019-04-20] MEDS ORDERED: C 50TAB PO (15:44)
[2019-04-20] MEDS ORDERED: VITA100066 PO (15:44)
[2019-04-20] MEDS ORDERED: VENTAER INH (15:44)
--- NOTE | 2019-04-20 16:16 | REP ---
CT chest with IV contrast: History: Shortness of breath. Hypoxia. Comparison chest CT study February 11, 2019. CT findings: There has been significant progression in the size and number of the innumerable ill-defined nodular opacities scattered throughout the lung whitt. These are very extensive. They are for the most part ill-defined. There are confluent mass-like opacities as well in the perihilar regions of the upper and lower lobes particularly left upper lobe, left lower lobe, and right middle lobe. These are more prominent as well. There is no CT evidence of pulmonary embolus. No aortic dissection or aneurysm is seen. No pleural or pericardial effusion is apparent. There is extensive mediastinal lymphadenopathy which is similar to the appearance on February 11, 2019. The largest lymph node is in the left axilla, 2.6 cm in greatest diameter. This is essentially unchanged. There are scattered supraclavicular and subclavicular nodes as well. No focal hepatic lesion is seen. No bony destructive lesion is seen. Impression: There is CT evidence of progression of the widespread pulmonary parenchymal disease, increase in size and number of the nodular opacities. I cannot exclude metastatic disease. Electronically Signed by Brendan Mora MD 04/20/2019 06:22 P
[2019-04-20] MEDS ORDERED: NS 1,000 ML IV SCH (17:02)
[2019-04-20] MEDS ORDERED: LEVO50TA45 PO (17:28)
--- NOTE | 2019-04-20 17:42 | HPEPDOC ---
General Date of Admission 04/20/19 Date of Service: Apr 20, 2019 Chief Complaint The patient is a 58-year-old female admitted with a reason for visit of Shortness Of Breath. Source: Patient Timing/Duration: Day(s) Severity: Mild, Moderate Associated Symptoms: Cough History of Present Illness Patient is 58 years old male with past history of Castleman's disease, hypothyroidism, rheumatoid arthritis presented hospital with increased shortness of breath and cough. Patient stated that for past few days she has increased shortness of breath associated with cough and yellowish/brownish sputum production in increased amount. Of note patient has long-standing rheumatoid arthritis treated with methotrexate, rituximab, Plaquenil. Patient was clinically stable until December 2018 when she developed exertional dyspnea. That CT scan showed extensive otis and pulmonary parenchymal disease in the neck, left axilla and chest. Standard uptake values of hypermetabolic cervical lymph nodes were in the range of 5.22 with a left supraclavicular lymph node having uptake of 3.73. Multifocal mediastinal and bilateral hilar lymphadenopathy was noted. In emergency room patient was found to have acute hypoxemic respiratory failure, lung CTA was negative for pulmonary emboli white blood count of 11.3. Also CT showed evidence of progression of the widespread pulmonary parenchymal disease, increase in size and number of the nodular opacities, suspicious for metastatic diseases Home Medications Scheduled Ascorbic Acid (Vitamin C) 500 Mg Tablet, 500 MG PO DAILY, (Reported) Cholecalciferol (Vitamin D3) (Vitamin D3) 1,000 Unit Tablet, 1,000 UNIT PO DAILY, (Reported) Levothyroxine Sodium (Levothyroxine Sodium) 75 Mcg Tab, 50 MCG PO DAILY, (Reported) Scheduled PRN Albuterol Sulfate (Ventolin Hfa) 18 Gm Hfa.aer.ad, 2 PUFF INH Q6H PRN for SHORTNESS OF BREATH, (Reported) Ipratropium/Albuterol Sulfate (Iprat-Albut 0.5-3(2.5) mg/3 ml) 3 Ml Ampul.neb, 1 ANKIT INH QID PRN for SOB/WHEEZING, (Reported) Naproxen Sodium (Aleve) 220 Mg Tablet, 220 MG PO BID PRN for PAIN, (Reported) Allergies Coded Allergies: Sulfa (Sulfonamide Antibiotics) (Verified Allergy, Mild, rash, 04/20/19) Past Medical History Medical History The patient has a past history significant for rheumatoid arthritis as detailed above, diagnosed at age of 23, per her report. There is a history of hypothyroidism, and a history of Castleman's disease diagnosed in 2008, as noted. There is a history of hemolytic anemia in 2009 for which the patient required hospitalization and which was treated with corticosteroids. There is also a history of chronic kidney disease. Surgical History The patient is 1, para 1 and underwent section. She has undergone surgery on the left wrist, the right hand, and underwent cholecystectomy for cholelithiasis in the past. Family History Father from heart attack, coronary artery diseases Mother had hypertension Social History * Smoker: Denies Alcohol: Denies Drugs: denies A-FIB/CHADSVASC A-FIB History Current/History of A-Fib/PAF?: No Current PO Anticoag Therapy: No Review of Systems Constitutional: Reports: Weakness; Denies: Chills Eyes: Denies: Pain, Vision change ENT: Denies: Ear Pain Skin: Denies: Rash, Lesions Pulmonary: Reports: Dyspnea, Cough Gastrointestinal: Denies: Nausea, Vomiting Genitourinary: Denies: Frequency Hematologic: Denies: Bruising Endocrine: Denies: Polydipsia, Polyphagia Musculoskeletal: Denies: Neck Pain Neurological: Denies: Weakness, Numbness Psych: Reports: Mood Normal Physical Examination General Exam: Positive: Alert, Cooperative Eye Exam: Positive: PERRLA ENT Exam: Positive: Atraumatic Neck Exam: Positive: Supple; Negative: JVD Chest Exam: Positive: Clear to auscultation Heart Exam: Positive: Rate Normal Telemetry: Positive: No significant arrhythmia Abdomen Exam: Positive: Normal bowel sounds Extremity Exam: Positive: Other (multiple metacarpal bones deformation consistent with rheumatoid arthritis); Negative: Clubbing Skin Exam: Positive: Nl turgor and temperature Neuro Exam: Positive: Normal Gait, Cranial Nerves 3-12 NL Psych Exam: Positive: Mental status NL Vital Signs Vital Signs Date Time Temp Pulse Resp B/P (MAP) Pulse Ox O2 Delivery O2 Flow Rate FiO2 04/20/19 16:00 94 20 116/65 (82) 95 Nasal Cannula 2.0 04/20/19 12:49 98.6 Laboratory Data Labs 24H Laboratory Tests 2 04/20/19 13:04: Total Bilirubin 0.8, Direct Bilirubin 0.2, Aspartate Amino Transf (AST/SGOT) 19, Alanine Aminotransferase (ALT/SGPT) 15, Alkaline Phosphatase 94, DI-Dzr-P-Type Natriuretic Peptide 472H, Total Protein 6.5, Albumin 3.9, Albumin/Globulin Ratio 1.50, Thyroid Stimulating Hormone (TSH) 3.300, Free Thyroxine 1.34 04/20/19 13:12: Immature Granulocyte % (Auto) 0.4, Neutrophils (%) (Auto) 58.7, Lymphocytes (%) (Auto) 22.9L, Monocytes (%) (Auto) 9.7H, Eosinophils (%) (Auto) 6.2H, Basophils (%) (Auto) 2.1H, Neutrophils # (Auto) 6.6, Lymphocytes # (Auto) 2.6, Monocytes # (Auto) 1.1H, Eosinophils # (Auto) 0.7H, Basophils # (Auto) 0.2, Nucleated Red Blood Cells % (auto) 0.0, Anion Gap 8, Glomerular Filtration Rate > 60.0, Calcium Level 9.2, Total Creatine Kinase 36, Creatine Kinase MB < 1.0, Creatine Kinase MB Relative Index 2.78, Troponin I < 0.02, Influenza Type A (RT-PCR) NEGATIVE, Influenza Type B (RT-PCR) NEGATIVE 04/20/19 14:29: Blood Gas Bicarbonate Standard 24.1, Arterial Blood pH 7.442, Arterial Blood Partial Pressure CO2 34.8L, Arterial Blood Partial Pressure O2 68.9L, Arterial Blood Total CO2 24.3, Arterial Blood HCO3 23.2, Arterial Blood Base Excess -0.4, Arterial Blood Oxygen Saturation 93.6L CBC/BMP Laboratory Tests 04/20/19 13:12 Microbiology Microbiology 04/20/19 Blood Culture, Received Pending 04/20/19 Blood Culture, Received Pending Assessment/Plan Patient is 58 years old male with past history of Castleman's disease, hypothyr oidism, rheumatoid arthritis presented hospital with increased shortness of breath and cough. Patient stated that for past few days she has increased shortness of breath associated with cough and yellowish/brownish sputum production in increased amount. 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
[2019-04-20] MEDS ORDERED: cefTRIAXone SOD 1 GM in D5W MINI-BAG PLUS 50 ML IV SCH (18:00)
[2019-04-20 18:45] VITALS: BP 128/63
[2019-04-20] MEDS: HEPARIN SOD (PORCINE) 5000 UNITS/ML VIAL (J1644 PER 1000UNITS) SC SCH (20:30)
[2019-04-20] MEDS: IPRATROPIUM 0.5MG/ALBUTEROL 2.5MG INH SOL UD 3ML (DUONEB)(J7620) NEB SCH (20:52)
[2019-04-20] MEDS: SYMBICORT 80/4.5MCG INHALER 6GM INH SCH (21:00)
[2019-04-20 22:00] VITALS: BP 116/78
[2019-04-21] MEDS: AZITHROMYCIN INJ 500 MG, VIAL MATE ADAPTER 1 EACH in D5W 250 ML IV SCH ×2 (00:16→20:39)
[2019-04-21] MEDS: IPRATROPIUM 0.5MG/ALBUTEROL 2.5MG INH SOL UD 3ML (DUONEB)(J7620) NEB SCH ×4 (01:23→13:33)
[2019-04-21] MEDS: LEVOTHYROXINE 50MCG TABLET (0.05MG) PO SCH (05:45)
[2019-04-21 06:00] VITALS: BP 114/76
[2019-04-21 06:21] LABS: HEMATOCRIT 40.7 % (36.0-47.0); MEAN CORPUSCULAR HEMOGLOBIN 27.8 pg (27.0-33.0); MEAN CORPUSCULAR HGB CONC 31.9 g/dl (32.0-36.5); MEAN CORPUSCULAR VOLUME 87.2 fl (80.0-96.0); PLATELET COUNT, AUTOMATED 312 10^3/uL (150-450); RED BLOOD COUNT 4.67 10^6/uL (4.00-5.40); WHITE BLOOD COUNT 12.1 10^3/uL (4.0-10.0)
[2019-04-21 06:46] LABS: ALBUMIN 3.2 GM/DL (3.2-5.2); ALT/SGPT 11 U/L (12-78); BILIRUBIN,TOTAL 0.9 MG/DL (0.2-1.0); BLOOD UREA NITROGEN 14 MG/DL (7-18); CALCIUM LEVEL 8.8 MG/DL (8.5-10.1); CARBON DIOXIDE LEVEL 26 MEQ/L (21-32); CHLORIDE LEVEL 105 MEQ/L (98-107); CREATININE FOR GFR 0.55 MG/DL (0.55-1.30); GLOMERULAR FILTRATION RATE > 60.0 (>51); GLUCOSE, FASTING 89 MG/DL (70-100); POTASSIUM SERUM 3.7 MEQ/L (3.5-5.1); SODIUM LEVEL 140 MEQ/L (136-145); TOTAL PROTEIN 5.8 GM/DL (6.4-8.2)
[2019-04-21] MEDS: SYMBICORT 80/4.5MCG INHALER 6GM INH SCH ×3 (07:58→20:54)
--- NOTE | 2019-04-21 07:58 | ECGEPIP ---
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
[2019-04-21] MEDS: HEPARIN SOD (PORCINE) 5000 UNITS/ML VIAL (J1644 PER 1000UNITS) SC SCH ×2 (08:57→20:39)
--- NOTE | 2019-04-21 14:08 | IPN ---
DATE: 04/21/2019 Jackie is seen on [facility]. She is a patient of Dr. Stout. She is also followed by Dr. Padilla of the [facility]. She has Castleman disease, rheumatoid arthritis, hypothyroidism. She was on Rituxan therapy for about 9 years but last dose was about 1-1/2 years ago. She has recently had a workup by Dr. Yamila Padilla of [facility], including bronchoscopy with biopsy, as well as lymph node biopsy. She also has been seen by Dr. Perez at [facility]. They had planned restarting Rituxan as an outpatient. She was admitted with shortness of breath. Overall, she feels better than yesterday and is encouraged by this. PHYSICAL EXAMINATION: 114/76, pulse 86, respiratory rate 19, 98.2 degrees, 96% oxygen saturation on 2 liters. GENERAL APPEARANCE: Chronically ill appearing, resting in bed. HEENT: Unremarkable. LUNGS: Decreased breath sounds. Diffuse rhonchi and rales. HEART: Regular rhythm. ABDOMEN: Soft, nontender. EXTREMITIES: No peripheral edema. LABORATORIES: White count 12.1. Electrolytes unremarkable. CT of the chest was reviewed. IMPRESSION: 1. Castleman disease with progressive infiltrates and nodularity on CT scan of the chest. PLAN: Case discussed in length with Dr. Padilla. At this point, we will defer treatment decisions to Dr. Padilla and Dr. Perez. Should they feel that there is no active pulmonary infection then we are hoping that she receives some Rituxan while in the hospital. We have set up a peripherally inserted central catheter (PICC) line. She is clinically improved with antibiotic therapy. Today, I increased the dose of Rocephin to 2 grams daily. She is still on azithromycin and I will defer to pulmonary whether we really think that this is atypical pneumonitis and if not would recommend we stop the azithromycin.
--- NOTE | 2019-04-21 15:49 | CR ---
DATE OF CONSULTATION: 04/21/2019 CHIEF COMPLAINT: Shortness of breath. HISTORY OF PRESENT ILLNESS: Ms. Willett is a 58-year-old female with a past medical history of Castleman disease, rheumatoid arthritis, and hypothyroidism who presented to the hospital with complaints of increasing shortness of breath, fatigue and cough for the past 2 weeks. The patient had previously been seen by me in clinic, most recently in mid March where she was seen for followup of a PET CT. The patient was seen initially in mid February for evaluation of an abnormal CT of the chest. The patient was diagnosed with Castleman in 2008 with a left axillary lymph node biopsy. She was being seen by rheumatology in [place], Dr. Platt, for which she was on Rituxan infusion for many years for her Castleman. She stopped treatment in 2017 and had not been seen by him since then. She then noticed since December 2018 increasing shortness of breath, dyspnea on exertion and cough. She had a CT chest done for evaluation, which was abnormal, and she was seen in our office then. On her CT she was noted to have a lung mass in the left apex with bilateral opacities and reticular nodular opacities with innumerable nodules, as well as evidence of bronchovascular thickening suggestive of a lymphangitic process. She therefore was consented for bronchoscopy with biopsy of the left apical mass, as well as with fine needle aspiration of her subcarinal lymph node as she did have mediastinal adenopathy noted on her initial CT. The patient's bronchoscopy was performed in the end of February. On pathology, the left upper lobe biopsy showed benign bronchial lining and a few scattered inflammatory cells. FNA of the left upper lobe showed benign respiratory cells, as well as neutrophils, lymphocytes, macrophages and eosinophils. There was no evidence of malignancy. On the flow cytometry, there was no evidence of non-Hodgkin's lymphoma. Her FNA of the subcarinal lymph node also showed lymphocytes but no evidence of malignancy or lymphoma. She did have BAL performed, which were negative in terms of bacterial culture and her AFB and fungal stains were also negative. The patient then had a PET CT done for further evaluation in March. On the PET CT, she was noted to have mild hypermetabolic uptake in bilateral cervical lymph nodes, as well as in the left supraclavicular lymph node. There were also mild mediastinal and hilar adenopathy with uptake with a maximum SUV of 6.13. She had increased metabolic activity in the lung parenchyma as well with multifocal parenchymal nodular disease. The highest SUV was in the left apical mass with an SUV of 4.98. She had some other nodular pulmonary parenchymal disease, which was not hypermetabolic. There was also some increased uptake in the retropharyngeal soft tissues and in the tonsillar soft tissues bilaterally, which may be a normal variant. The patient's case was presented and discussed during our tumor board. The recommendation of the tumor board was for a repeat axillary lymph node biopsy with a complete surgical excision for more complete evaluation. There was some thought that the progression of disease on her CT was due to her multicentric Castleman disease as the uptake on PET CT can be seen with Castleman. If there was an SUV above 8 that would be less likely to be Castleman and raises suspicion instead for other diseases, such as lymphoma. We discussed at her last visit the recommendation for an axillary lymph node excision; however, due to her poor experience with her previous lymph node excision, she declined and instead elected to have reevaluation by her welfare worker in [place], as well as with oncology, which she was referred to. The patient was seen by Dr. Perez and the plan was to start her on Rituxan infusions via a peripherally inserted central catheter (PICC) line. Before the patient was able to be started on the Rituxan; however, in the past 2 weeks she had noticed increasing shortness of breath and fatigue, as well as increased cough productive of yellow, occasionally of brown mucus. The patient had previously been on DuoNebs, which she has reported improvement in her shortness of breath and in her cough with. In the past 2 weeks; however, she has not found the nebulizer treatments as effective as they previously were and she feels she has to use them more frequently now. She denied any fevers or chills. No night sweats. She does have some burning sensation in her chest but no chest pain. She has not had any wheezing. She has denied any hemoptysis. She did notice some hand swelling, as well as some mild ankle swelling as well. The patient presented to the emergency department for her worsening shortness breath and fatigue. In the emergency department she was at noted to have new hypoxemia and was started on nasal cannula oxygen supplementation. The patient was admitted for further evaluation. PAST MEDICAL HISTORY/PAST SURGICAL HISTORY: 1. Castleman disease diagnosed in 2008 with history of left axillary lymph node biopsy and a bone marrow biopsy. 2. Rheumatoid arthritis. 3. Hypothyroidism. 4. Chronic kidney disease. 5. Hemolytic anemia. 6. section. 7. Left hand/wrist surgery. 8. Right hand / wrist surgery. 9. Cholecystectomy. SOCIAL HISTORY: The patient denies previous history of smoking. FAMILY HISTORY: Father with history of heart attack and coronary artery disease. Mother with history of hypertension. HOME MEDICATIONS: - levothyroxine - vitamin D3 - vitamin C - DuoNebs - albuterol as needed - Aleve as needed ALLERGIES: SULFA. PHYSICAL EXAMINATION: Temperature afebrile at 98.2, pulse 86, respirations 19, blood pressure 114/76, oxygen saturation 96% on 2 liters nasal cannula. General: The patient is awake, alert and oriented. She is not in any acute respiratory distress. HEENT: Normocephalic, atraumatic. Oral and nasal mucosa are moist without lesions. Neck is supple. Trachea is midline. There is a small firm palpable right cervical lymph node. No supraclavicular or axillary adenopathy palpated. Cardiac: Regular rate and rhythm. Normal S1, S2 without appreciable murmur. Pulmonary: There are crackles bilaterally with occasional rhonchi. There is no significant wheezing. Abdomen: Soft, nontender. There is no palpable mass. Extremities: Patient has chronic rheumatoid deformities in her fingers and hands bilaterally. She has mild edema in her hands. There is no significant pitting edema in the bilateral lower extremities. LABORATORIES: WBC 12.1, hemoglobin 13.0, platelets are 312. Chemistry: Sodium is 140, potassium 3.6, chloride 105, bicarbonate 26, BUN is 14, creatinine 0.55, glucose is 89, AST 17, ALT 11, alkaline phosphatase 77, troponin negative times one. BNP 472, albumin is 3.2, TSH 3.30, Free T4 1.34. ABG showed pH 7.442, pCO2 of 34.8, pO2 of 68.9. Influenza A and B negative. IMAGING: Lower extremity duplex negative for bilateral deep vein thrombosis (DVT). CT angiogram shows significant progression in innumerable ill-defined nodular opacities throughout the lung. There are also some increased ground-glass opacities noted, as well as some more solid nodules. She also has some confluent mass-like opacities in the perihilar regions of the upper and lower lobes, particularly in the left upper lobe, left lower lobe and right middle lobe, which is more prominent. There is bronchovascular thickening as well with some suggestion of some lymphangitic process. She has a large left apical mass as well. The patient continues to have mediastinal adenopathy with the largest lymph node in the left axilla measuring 2.6 cm. There are no destructive bony lesions seen. ASSESSMENT AND PLAN: Ms. Willett is a 58-year-old female with a history of Castleman disease, rheumatoid arthritis, hypothyroidism who presented with worsening shortness of breath and cough. The patient had previously been evaluated in our pulmonary clinic with CT at the end of January showing a left apical mass, as well as diffuse reticular nodular infiltrates with bronchovascular thickening and innumerable pulmonary nodules, as well as some other areas of consolidation and with mediastinal and hilar adenopathy. The patient had a bronchoscopy in the end of February with biopsy of her left apical mass, as well as with FNA of her subcarinal lymph node, which did not show any evidence of malignancy and on flow cytometry there was no evidence of lymphoma. The patient then had a PET CT done for further evaluation, which did show some mild uptake in her lymph nodes in the cervical, as well as in her left axilla and in her mediastinal and hilar lymph nodes. In the lungs, she also had some uptake in the multifocal pulmonary parenchymal nodular disease. The SUV maximal was 6 in one of her mediastinal lymph nodes. The patient's case was discussed at tumor board and with Castleman disease you can expect to see some low FDG avidity in the lung parenchymal disease and in her lymph nodes, and her PET CT may be consistent potentially with the multicentric variety of Castleman and likely with progression since being off of the Rituxan that she had been treated with for many years. There was some discussion about a repeat lymph node biopsy of her left axillary lymph node with a complete surgical excision for further evaluation due to some concern still for possible malignancy despite the negative biopsies with bronchoscopy. The patient however refused repeat lymph node excision, as she had a poor experience with her initial lymph node biopsy in 2008. The patient was then referred back to her welfare worker in [place], as well as with oncology here. The patient was seen by Dr. Perez and the discussion was to start her on Rituxan infusion again as she did have a good response previously. Before the patient was able to be started on Rituxan however, she noticed increasing shortness of breath and fatigue, as well as an increased cough productive of yellow us with some brown mucus occasionally. The patient was found to have worsening disease on imaging with increase of the innumerable nodules, as well as some more ground-glass nodules and opacities as well. She continues to have extensive lymphadenopathy, which appears similar compared to her previous CT. The patient was also found now to have new hypoxemic respiratory failure likely in the setting of a worsening parenchymal disease. - The patient's progression on CT may possibly be due to progression of her Castleman, although cannot rule out another malignant process, even with her history of negative biopsies in the past. Infectious etiology may also be possible, especially with the more ground-glass appearance; however, with the nodules and bronchovascular thickening, there is more suggestion of a lymphangitic process. - We will check a sputum culture and we will also send sputum cytology for PCP as well as AFB stain. - We will continue with empiric antibiotics with ceftriaxone and azithromycin. We will check a procalcitonin. - We will also check a respiratory viral panel. Her influenza A and B were negative. - Would continue the patient with nasal cannula oxygen supplementation and titrate for oxygen saturation above 90%. We will continue with DuoNebs every 6 hours and we will start Symbicort inhaler. The patient was planned to be started on budesonide nebulizer as an outpatient, which she did not receive yet. - We will discuss the patient's case with her oncologist, Dr. Perez. If her cultures are negative for any infectious process, the patient may benefit from starting Rituxan infusion as an inpatient. She does have a history of poor venous access and she was planned for a peripherally inserted central catheter (PICC) line at to be done as an outpatient procedure tomorrow. We will get a PICC line for her while she is admitted. - We will discuss about potential need for repeat biopsy of her lung or of her left axillary lymph node while she is admitted. Bronchoscopy with BAL could potentially be considered as part of her workup for possible infectious process in the lung; however, the patient is able to give us good sputum cultures and so BAL is not needed at this time. Deep vein thrombosis (DVT) prophylaxis. Heparin. Code status: FULL CODE. MTDD
[2019-04-21] MEDS: cefTRIAXone SOD 2 GM in D5W MINI-BAG PLUS 50 ML IV SCH (17:59)
[2019-04-21 22:00] VITALS: BP 115/56
[2019-04-22] MEDS: IPRATROPIUM 0.5MG/ALBUTEROL 2.5MG INH SOL UD 3ML (DUONEB)(J7620) NEB SCH ×4 (00:58→20:00)
[2019-04-22] MEDS: LEVOTHYROXINE 50MCG TABLET (0.05MG) PO SCH (05:32)
[2019-04-22 06:00] VITALS: BP 111/64
[2019-04-22 06:35] LABS: HEMATOCRIT 39.3 % (36.0-47.0); HEMOGLOBIN 12.3 g/dl (12.0-15.5); MEAN CORPUSCULAR HEMOGLOBIN 27.8 pg (27.0-33.0); MEAN CORPUSCULAR HGB CONC 31.3 g/dl (32.0-36.5); MEAN CORPUSCULAR VOLUME 88.9 fl (80.0-96.0); PLATELET COUNT, AUTOMATED 300 10^3/uL (150-450); RED BLOOD COUNT 4.42 10^6/uL (4.00-5.40); WHITE BLOOD COUNT 13.1 10^3/uL (4.0-10.0)
[2019-04-22 07:02] LABS: BLOOD UREA NITROGEN 15 MG/DL (7-18); CALCIUM LEVEL 8.9 MG/DL (8.5-10.1); CARBON DIOXIDE LEVEL 28 MEQ/L (21-32); CHLORIDE LEVEL 105 MEQ/L (98-107); GLOMERULAR FILTRATION RATE > 60.0 (>51); GLUCOSE, FASTING 86 MG/DL (70-100); POTASSIUM SERUM 3.9 MEQ/L (3.5-5.1); SODIUM LEVEL 141 MEQ/L (136-145)
[2019-04-22] MEDS: SYMBICORT 80/4.5MCG INHALER 6GM INH SCH ×2 (08:45→20:15)
[2019-04-22] MEDS: HEPARIN SOD (PORCINE) 5000 UNITS/ML VIAL (J1644 PER 1000UNITS) SC SCH ×2 (10:46→20:30)
[2019-04-22 14:00] VITALS: BP 121/67
--- NOTE | 2019-04-22 14:05 | IPN ---
DATE: 04/22/2019 Jackie is seen in [address] [place] [address]. She has Castleman's disease and she feels about the same today as she did yesterday and we are waiting for oncology to begin treatment. Today we did a PICC line. PHYSICAL EXAMINATION: Afebrile. Vital signs stable. Lung diffuse rhonchi. Heart regular rhythm. Abdomen soft, nontender. IMPRESSION: Castleman's disease. PLAN: Plan is per pulmonary and oncology. I think at this point our role is just to facilitate specialty care. We did put in for a PICC line today.
--- NOTE | 2019-04-22 15:47 | IPN ---
DATE: 04/22/2019 The patient was seen and examined this morning during bedside rounds. The patient did have her PICC line placed in her right arm. She reports her breathing has improved since admission. She does still have some shortness of breath with exertion and fatigue but has been improving. She does continue to have a cough which is productive of mucus but she feels that has also been improving as well. She has not had any fevers or chills. Denies any chest pain. She denies any significant lower extremity edema, but she does have some mild swelling on her foot on the right side. The previously noted edema in her hands has improved. PHYSICAL EXAM: Temperature 97.1, pulse 87, respirations 20, blood pressure 111/64, O2 sat 94% on 2 liters nasal cannula, ins 1.1 liters, out 775 mL. General: The patient is awake, alert and oriented, is sitting in the chair, is not in any acute respiratory distress. Is able to speak in complete sentences. HEENT: Normocephalic, atraumatic. Oral and nasal mucosa are moist. Neck is supple. Trachea is midline. There is a small firm palpable right cervical lymph node. No supraclavicular axillary adenopathy able to be palpated easily. Cardiac: Regular rate and rhythm. Normal S1-S2 without appreciable murmur. Pulmonary: There are crackles bilaterally with occasional squeaks but no significant wheezing. Abdomen is soft, nontender, nondistended. There is no palpable mass. Extremities: Patient has chronic rheumatoid deformities in her hands bilaterally and fingers. There is improvement in the mild edema in her hands that was noted previously. She has mild swelling in her right foot but no significant pitting lower extremity edema bilaterally. LABORATORY DATA: WBC 13.1, hemoglobin 12.3, platelets 300. Chemistry - sodium is 141, potassium 3.9, chloride 105, bicarb 28, BUN 18, creatinine 0.6, glucose 86. MICRO: Blood cultures are no growth to date. Sputum culture showed oropharyngeal contamination and was not performed. Respiratory virus panel PCR was negative. Sputum cytology showed no malignancies. There was squamous cells and a background of lymphocyte, neutraphils, and scattered pulmonary macrophages. ASSESSMENT AND PLAN: Ms. Willett is a 58-year-old female with history of Castleman's disease, rheumatoid arthritis, hypothyroidism who presented with worsening shortness breath and cough. The patient was initially evaluated as an outpatient for a CT chest which showed innumerable pulmonary nodules as well as larger areas of opacification and mass-like consolidation as well as with mediastinal and hilar adenopathy. She had a bronchoscopy at the end of February with biopsy of her left apical mass as well as FNA of her subcarinal lymph node which did not show any evidence of malignancy and also cytometry there is no evidence of lymphoma. The patient had a PET/CT done as part of her evaluation which showed mild uptake in the lymph nodes in the cervical chain as well as in the left axilla as well as and mediastinal and hilar region. She also had some uptake in the multifocal pulmonary parenchymal nodular disease but the max SUV was only approximately 6 in the lymph nodes. The patient's case was presented at previous tumor board and there was discussion that with Castleman's disease you cannot expect to see low FDG avidity and the lung parenchymal disease in no lymph nodes. The patient was thought to have multicentric Castleman's disease with progression since being off of the rituxan and she was referred to oncology as well as her previous jet blade polisher that she was seeing. The patient was seen by oncology, Dr. Perez, and plan was to start her on rituxan infusion and she had a good response previously. Before the patient can be started, however, she presented now with the worsening shortness of breath, fatigue as well as productive cough. Her repeat CT showed extensive progression in her lungs with increase in the pulmonary nodules as well some ground-glass opacities and what appeared to be possible lymphangitic spread of the disease. - The patient's progression may be due to progression of her Castleman although cannot rule another malignant process, however, she did have negative biopsies in the past and suspect this is most likely from her Castleman. Infectious etiology is in the differential, however, she had has previously had bronchoscopy bronchoalveolar lavage (BAL) which was negative on sputum cultures, AFB as well as fungal stains. - Patient is currently on broad-spectrum antibiotics with ceftriaxone and azithromycin. Will followup with the procalcitonin. - Her initial sputum culture was contaminated and so we will send a repeat sputum culture as well as a sputum AFB stain. We will followup those results. Her sputum cytology was sent for PCP but it did not appear they did the GMS stain. We will call about performing GMS stain on her sample. - The patient's case was discussed with her oncologist, Dr. Perez, and if patient is not to have an active infectious process that she would benefit from starting rituxan infusion as an inpatient. She did have a PICC line placed in anticipation of starting rituxan. - If patient is unable to provide good samples with her sputum, would consider inducing sputum with hypertonic nebs and she may require potentially a bronchoscopy for BAL if needed. The patient is hesitant, however, about repeat bronchoscopy at this time unless absolutely needed. - Will continue the use of nasal cannula oxygen supplementation to maintain oxygen sat above 90%. The patient is on 2 liters currently and she may potentially need oxygen supplementation upon discharge. - Continue with DuoNebs and Symbicort. She is ordered for Budesonide nebulizer as an outpatient which she will continue with when she is discharged. Deep venous thrombosis (DVT) prophylaxis. Heparin. FULL CODE.
[2019-04-22] MEDS ORDERED: SODIUM CHLORIDE 0.9% INJ 10 ML SYR IV PRN (16:15)
[2019-04-22] MEDS: cefTRIAXone SOD 2 GM in D5W MINI-BAG PLUS 50 ML IV SCH (17:44)
[2019-04-22] MEDS: SODIUM CHLORIDE 0.9% INJ 10 ML SYR IV SCH (18:34)
--- NOTE | 2019-04-22 18:36 | REP ---
Procedure: PICC line insertion with Arin The procedure was performed under the direct supervision of Dr. Mora. The risks and benefits of the procedure were explained to the patient and informed consent was obtained. The right brachial vein was localized using ultrasound guidance. The skin was prepped and draped in a sterile fashion. 2% lidocaine was used as a local anesthetic. Using ultrasound guidance the brachial vein was cannulated and a 0.018 guidewire was inserted and advanced to the SVC using fluoroscopic guidance. The needle was removed and a 4.5 Korean dilator and peel-away sheath was inserted over the guide wire. A 4.5 Korean single lumen catheter was cut to length of 42 cm. The dilator was removed and the catheter was inserted over the guide wire with the tip ending in the SVC. The peel-away sheath was removed and the catheter was flushed with heparinized saline as per Hospital protocol. The catheter was affixed to the skin and a sterile dressing was applied. The patient tolerated the procedure well and there were no immediate complications. 0.4 minutes of fluoro time was utilized for this procedure. Electronically Signed by NORMA Goldman 04/22/2019 05:46 P Electronically Signed by Brendan Mora MD 04/22/2019 06:25 P
[2019-04-22] MEDS: AZITHROMYCIN INJ 500 MG, VIAL MATE ADAPTER 1 EACH in D5W 250 ML IV SCH (20:30)
[2019-04-22 22:00] VITALS: BP 111/73
[2019-04-23] MEDS: IPRATROPIUM 0.5MG/ALBUTEROL 2.5MG INH SOL UD 3ML (DUONEB)(J7620) NEB SCH ×4 (01:41→20:00)
[2019-04-23] MEDS: LEVOTHYROXINE 50MCG TABLET (0.05MG) PO SCH (05:36)
[2019-04-23] MEDS: SODIUM CHLORIDE 0.9% INJ 10 ML SYR IV SCH ×2 (05:37→18:29)
[2019-04-23 06:00] VITALS: BP 114/60
[2019-04-23 06:18] LABS: HEMATOCRIT 37.1 % (36.0-47.0); HEMOGLOBIN 12.3 g/dl (12.0-15.5); MEAN CORPUSCULAR HEMOGLOBIN 28.8 pg (27.0-33.0); MEAN CORPUSCULAR HGB CONC 33.2 g/dl (32.0-36.5); MEAN CORPUSCULAR VOLUME 86.9 fl (80.0-96.0); PLATELET COUNT, AUTOMATED 245 10^3/uL (150-450); RED BLOOD COUNT 4.27 10^6/uL (4.00-5.40); WHITE BLOOD COUNT 13.6 10^3/uL (4.0-10.0)
[2019-04-23 06:32] LABS: BLOOD UREA NITROGEN 14 MG/DL (7-18); CALCIUM LEVEL 8.3 MG/DL (8.5-10.1); CARBON DIOXIDE LEVEL 25 MEQ/L (21-32); CHLORIDE LEVEL 107 MEQ/L (98-107); CREATININE FOR GFR 0.51 MG/DL (0.55-1.30); GLOMERULAR FILTRATION RATE > 60.0 (>51); GLUCOSE, FASTING 91 MG/DL (70-100); POTASSIUM SERUM 3.8 MEQ/L (3.5-5.1); SODIUM LEVEL 141 MEQ/L (136-145)
[2019-04-23] MEDS: SYMBICORT 80/4.5MCG INHALER 6GM INH SCH ×2 (07:35→20:18)
[2019-04-23] MEDS: HEPARIN SOD (PORCINE) 5000 UNITS/ML VIAL (J1644 PER 1000UNITS) SC SCH ×2 (11:15→20:04)
--- NOTE | 2019-04-23 13:46 | IPN ---
DATE: 04/23/2019 NOTE: Ms. Willett this morning continues to have some shortness of breath but feels that she has improved somewhat since admission. She just completed walking a lap around the floor when I saw her. She notes fatigue but also feels that is improving. She has a cough that is unchanged and productive of mucus. No fevers or chills. No chest pain or pressure. No paroxysmal nocturnal dyspnea (PND). She does not feel that she can lie flat and that is unchanged. No significant lower extremity edema. She has some swelling of her hands, which is relatively new, right greater than left. She and her are anxious to know when she will be able to start Rituxan. No other concerns expressed. OBJECTIVE/PHYSICAL EXAMINATION: General: Ms. Willett is sitting in a chair, in no acute distress. She can complete full sentences. No cough during my evaluation. Vital Signs: Temperature 97.4 with a maximum temperature (Tmax) of 99.2, pulse 93, respiratory rate 22, blood pressure 114/60 with a mean arterial pressure (MAP) of 78, SpO2 93% on 2 liters by nasal cannula. HEENT: Anicteric, nares: Patent bilaterally. Oropharynx clear. No lesions. Neck: Supple, without thyromegaly or masses, trachea is midline. Lymphs: Question of one soft small right posterior cervical lymph node, otherwise no lymph nodes appreciated. Chest: Normal shape. Lungs: Symmetric excursion, good air entry, bilateral crackles at approximately a third of the way up. No wheeze or rhonchi. Normal I:E. Normal percussion. No accessory muscle usage retractions. Abdomen: Normoactive bowel sounds, soft, nondistended, nontender. Extremities: Without clubbing, cyanosis or significant edema. Palpable pedal pulses bilaterally. No swelling in the left hand. There is some swelling with trace pitting edema in the right hand but not in the forearm. (She had a right peripherally inserted central catheter (PICC) placed yesterday). LABORATORY DATA: CBC from this morning showed a hemoglobin of 12.3, hematocrit 37.1, platelet count 245,000, white blood cell count 13,600. Chemistry showed a sodium 141, potassium 3.8, chloride 107, bicarbonate 25, anion gap 9, BUN 14, creatinine 0.5, glucose 91, calcium 8.3. Microbiology gram stain was of good quality. IMPRESSION: 1. 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 No evidence of an infective component. 2. Productive cough. This is felt to be secondary to her underlying lymphoproliferative process. Infection would be in the differential but seems less likely. She has had a recent bronchoscopy, for which she had a negative AFB and fungal cultures as well as bacterial cultures. 3. Castleman disease. RECOMMENDATIONS: 1. We will await the sputum culture results. 2. Defer to hematology as to when to start Rituxan. 3. I answered numerous questions of Ms. Willett and her . Dr. Perez will be seeing them today and he can better answer their questions as most regard when they can start Rituxan and when they expect to see a clinical response. OSVALDO
[2019-04-23 14:00] VITALS: BP 117/67
--- NOTE | 2019-04-23 15:21 | CR ---
DATE OF CONSULTATION: 04/23/2019 REQUESTING PHYSICIAN: Dr. Jain, medical intensive care unit (ICU) pulmonary medicine. INDICATION FOR CONSULTATION: Management recommendations regarding Castleman's disease. IDENTIFICATION AND CHIEF COMPLAINT: Jackie Willett is a very pleasant 58-year-old woman with a history of Castleman's disease, admitted on this occasion in the emergency department on April 20, 2019. The patient is seen for recommendations regarding management. HISTORY OF PRESENT ILLNESS: Jackie Willett is a 58-year-old woman whose history of present illness dates to the age of 23, when she developed arthralgias and was first diagnosed as having rheumatoid arthritis. She has had progressive joint destruction over the course of the past 35 years and was previously under the care of the rheumatology program at the [facility]. Mrs. Willett was diagnosed as having Castleman's disease in the year 2008, after presenting with pathologic lymphadenopathy. She reports that she underwent left axillary lymph node biopsy at that time, although report of the histopathology is not immediately available for review. That hospitalization was complicated by deep vein thrombosis, and the patient reports she is hesitant to undergo further biopsies if at all possible. Mrs. Willett has been treated for Castleman's disease with rituximab, having received infusions, as treatment both of Castleman's disease and rheumatoid arthritis. Her last infusion of rituximab was in the year 2017. The patient had been clinically stable until late December onset of exertional dyspnea, which has been progressively worsening over the past several months. She also reports intermittent night sweats as well as modest weight loss. She was evaluated in detail by Yamila Padilla MD of pulmonary medicine which included formal pulmonary function testing on March 01, 2019, and PET/CT scan performed March 24, 2019. PET study showed extensive lymph node and pulmonary parenchymal disease of the left axilla and chest. Standard uptake values of hypermetabolic cervical lymph nodes were in the range of 5.22 with a left supraclavicular lymph node having uptake of 3.73. Multifocal mediastinal and bilateral hilar lymphadenopathy was noted with maximal standard uptake value of 6.13. The patient continues to undertake most activities of daily living with her Karnofsky performance status overall estimated at 80%. However, on April 20, 2019 she reports having experienced more severe dyspnea, and presented to the emergency department. CT angiography was negative for pulmonary embolus, but the patient was hypoxemic and was hospitalized. She remains hospitalized at this time, and is on supplemental oxygen. She states she feels somewhat better at this time and she did and the time of initial presentation. On presentation on April 20, 2019, oxygen saturation was 87%. At present, oxygen saturation is in the range of 93-95% on oxygen at 2 liters by nasal cannula. The patient has been afebrile since admission. ALLERGIES: The patient reports allergies to SULFA and ANTIMICROBIALS CURRENT MEDICATIONS: - ceftriaxone 2 grams intravenously q.24 h - levothyroxine 50 mcg p.o. daily - unfractionated porcine heparin 5000 units subcutaneously q.12 h - Symbicort 2 puffs p.o. b.i.d. - DuoNeb inhalation therapy q.6.h. - azithromycin 500 mg intravenously every 24 hours. PAST MEDICAL HISTORY: The patient's past history is significant for rheumatoid arthritis as detailed above as well as Castleman's disease as noted. There is history of hypothyroidism, and history of transient hemolytic anemia in 2009 for which she was hospitalized and required corticosteroids. The patient also has history of chronic kidney disease. She is 1, para 1 and status post section. She has undergone surgery on the left wrist for management of changes due to rheumatoid arthritis upon the right hand and she has undergone cholecystectomy for cholelithiasis in the past. SOCIAL HISTORY: Tobacco: The patient does not use tobacco. Alcohol: The patient does not use alcohol. Illicit drugs: The patient does not use illicit drugs. FAMILY HISTORY: The patient's father at age of 63 from myocardial infarction. The patient's mother is alive at age of 78 with history of hypertension. REVIEW OF SYSTEMS: NEUROLOGIC: No history of head trauma, seizure disorder or focal neurologic deficits. RESPIRATORY: History of dyspnea as detailed above with presumed Castleman's disease involving the lungs as well as lymph nodes. Pulmonary function to an obstructive pattern of pulmonary disease with an FEV-1 of 0.84 liters. The patient reports intermittent cough nonproductive and exertional dyspnea. CARDIAC: No history of myocardial infarction. No exertional chest pressure. No orthopnea. No leg edema. GASTROINTESTINAL: No recent nausea, vomiting, abdominal pain or diarrhea. GENITOURINARY: No dysuria or hematuria. No polyuria. MUSCULOSKELETAL: The patient has rheumatoid arthritis with deformities of both hands and has modest at present. CONSTITUTIONAL: The patient reports recent night sweats and modest weight loss. No documented fevers. The remainder of review of systems was obtained and was negative. PHYSICAL EXAMINATION: The patient is a thin, petite woman awake, alert and fully oriented, friendly and cooperative in no acute distress wearing oxygen by nasal cannula. Temperature 98.2, pulse 97, respirations 18, blood pressure 114/76, oxygen saturation 96% on room air. SKIN: Full turgor anicteric without active lesions. HEENT: Examination normocephalic, atraumatic. Pupils equal round and reactive to light and accommodate. Extra muscles intact. Sclerae anicteric. Oropharynx without lesions. NECK: Supple without thyromegaly. LYMPHATICS: The cervical region is remarkable for pea-sized lymph nodes bilaterally in the cervical chain; one on the right and two appreciable on the left with no discrete supraclavicular lymphadenopathy noted. In the axilla, there is a single right axillary lymph node, less than 1 cm but in the left axilla, there is a 1.5 cm lymph node palpable which is rubbery in texture and mobile and nontender. No appreciable inguinal lymphadenopathy. LUNGS: The right lung field is clear to auscultation but the left lung field reveals dry crackles without wheezing. Lungs are resonant to percussion. CARDIAC EXAM: Regular rhythm. Point of maximal impulse nondisplaced. S1, S2, without gallop or murmur appreciated. Full pulses. BREAST EXAMINATION: Deferred. ABDOMEN: Active bowel sounds, soft, nontender without guarding, rebound elicited. No appreciable organomegaly. PELVIC EXAMINATION: Deferred. RECTAL EXAMINATION: Deferred. EXTREMITIES: Without clubbing, cyanosis or edema but there are marked deformities of the hands with flexion and to the joints particularly at the metacarpophalangeal joints with swan neck deformities of the thumbs NEUROLOGIC EXAMINATION: Mental status intact. Cranial nerves intact. Motor and sensory fully intact. LABORATORY DATA: Laboratory studies dated April 23, 2019 include white blood count 13,600 per micdroliter, hemoglobin 12.3 gm/dL, hematocrit 38-7.1% platelet count 245,000. BUN 15, creatinine 0.51 mg/dL, glucose 91 mg/dL. Serology: April 15, 2019 is negative for hepatitis B by surface antibody antigen. Pathology report from bronchoscopy dated March 10, 2019 (specimen [id number]) is nondiagnostic. Bone marrow examination data October 22, 2012 (specimen [id number]) reports a cellular marrow with mild increase in reticulin fibrosis. JAK2 V617F mutation was negative. Diagnostic evaluation for the patient's hemolytic anemia included FLAER analysis of blood cells performed at [facility] on January 04, 2013 and showed no evidence whatsoever of paroxysmal nocturnal hemoglobinuria. IMPRESSION: Pulmonary disease with lymphadenopathy. The patient has a presentation consistent with her prior diagnosis of Castleman disease. It would be entirely reasonable to obtain lymph node biopsy and the most prominent lymph node present is in the left axilla. However, this was discussed at the time of consultation on April 23, 2019 and the patient is adamant at this time that she does not wish to have lymph node biopsy. The patient has responded favorably to treatment with rituximab in the past, and retreating with rituximab seems entirely appropriate at this time. There is nothing to suggest strongly that the patient has had evolution to a clonal lymphoproliferative disorder at this time. 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 The patient has already signed consent for rituximab, and it would be reasonable to give the first intravenous dose as an inpatient, followed by subcutaneous doses subsequently. However, there may be a logistical barrier to the administration of rituximab over the weekend as an inpatient. RECOMMENDATIONS: It is recommended that rituximab 375 mg/ sq m be given intravenously if at all possible. This has been discussed with pharmacy and with nursing. It remains to be determined whether not the resources are in place to administer the rituximab at this time. If the patient does receive rituximab without an improvement in the course of 1 month, then additional treatment options include anti IL6 antibody therapy using siltuximab, a monoclonal antibody against interleukin 6 FDA approved a number of years ago. Of note, a report published by Vipul Hale and colleagues describing the treatment of patient's with symptomatic Castleman's disease using siltuximab demonstrated an overall response rate to that agent of 78%.
[2019-04-23] MEDS: cefTRIAXone SOD 2 GM in D5W MINI-BAG PLUS 50 ML IV SCH (18:00)
--- NOTE | 2019-04-23 19:33 | IPN ---
DATE: 04/23/2019 Jackie feels well. She is ambulating better. She is less short of breath. She is on azithromycin and ceftriaxone, awaiting for results of sputum culture to come back. PHYSICAL EXAM: Afebrile. Vital signs stable. Lungs: Scattered rhonchi. Better air movement. Heart: Regular rhythm. Abdomen: Soft, nontender. LABS: White count 13,000. Electrolytes unremarkable. PLAN: At this point, we are deferring to hematology/oncology and pulmonology. The case was discussed at length with Dr. Jain today. My last conversation with Dr. Padilla, I understood the plan to be wait for sputum culture to return and if negative begin treatment of Castleman disease through Dr. Perez. Dr. Perez has done a formal consultation, and he recommends rituximab to be given as an inpatient, and we are investigating whether this can be done as an inpatient. If her sputum culture is negative, and she cannot receive rituximab as an inpatient, she could be discharged and have this done through his office.
[2019-04-23] MEDS: AZITHROMYCIN INJ 500 MG, VIAL MATE ADAPTER 1 EACH in D5W 250 ML IV SCH (20:04)
[2019-04-23 22:00] VITALS: BP 101/59
[2019-04-24] MEDS: IPRATROPIUM 0.5MG/ALBUTEROL 2.5MG INH SOL UD 3ML (DUONEB)(J7620) NEB SCH ×3 (05:06→13:50)
[2019-04-24] MEDS: SODIUM CHLORIDE 0.9% INJ 10 ML SYR IV SCH (05:32)
[2019-04-24] MEDS: LEVOTHYROXINE 50MCG TABLET (0.05MG) PO SCH (05:32)
[2019-04-24 05:45] LABS: HEMATOCRIT 36.1 % (36.0-47.0); HEMOGLOBIN 11.7 g/dl (12.0-15.5); MEAN CORPUSCULAR HEMOGLOBIN 28.1 pg (27.0-33.0); MEAN CORPUSCULAR HGB CONC 32.4 g/dl (32.0-36.5); MEAN CORPUSCULAR VOLUME 86.6 fl (80.0-96.0); PLATELET COUNT, AUTOMATED 219 10^3/uL (150-450); RED BLOOD COUNT 4.17 10^6/uL (4.00-5.40); WHITE BLOOD COUNT 12.7 10^3/uL (4.0-10.0)
[2019-04-24 06:00] VITALS: BP 112/57
[2019-04-24 06:13] LABS: BLOOD UREA NITROGEN 16 MG/DL (7-18); CARBON DIOXIDE LEVEL 29 MEQ/L (21-32); CHLORIDE LEVEL 105 MEQ/L (98-107); CREATININE FOR GFR 0.52 MG/DL (0.55-1.30); GLOMERULAR FILTRATION RATE > 60.0 (>51); GLUCOSE, FASTING 93 MG/DL (70-100); SODIUM LEVEL 141 MEQ/L (136-145)
[2019-04-24] MEDS: SYMBICORT 80/4.5MCG INHALER 6GM INH SCH (07:43)
[2019-04-24] MEDS: HEPARIN SOD (PORCINE) 5000 UNITS/ML VIAL (J1644 PER 1000UNITS) SC SCH (08:41)
--- NOTE | 2019-04-24 12:31 | DS.PDOC ---
Discharge Summary General Date of Admission Apr 20, 2019 at 17:02 Date of Discharge 04/24/2019 Primary Care Physician: Yovani Stout MD Attending Physician: Yovani Stout MD Specialist/Consultants Involve: JOSH HERNANDEZ MD Specialist/Consultants Involve Rich Perez M.D. (hematology oncology) Discharge Summary ADMITTING DIAGNOSES: 1. Hypoxic respiratory failure. 2. COPD with acute exacerbation (while this was one of the admission diagnosis, it should be noted that the patient has never been diagnosed with COPD). DISCHARGE DIAGNOSES: 1. Castleman's disease, multifocal. 2. Hypoxemia. 3. Rheumatoid arthritis. 4. History of left upper extremity deep vein thrombosis. 5. Hypothyroidism. PROCEDURES PERFORMED DURING STAY: PICC line placement. ADMISSION HISTORY: Ms. Willett presents to the hospital with increased shortness of breath and cough. Patient stated that for the past few days she has increased shortness of breath associated with cough and yellowish/brownish sputum production and increased amount. Please see the admission history and physical for the remaining details. HOSPITAL COURSE: Ms. Willett came to the hospital with worsening dyspnea that was causing a loss of some function while she needed her chores at home. She's been in the middle of a workup for a large left upper lobe mass and innumerable smaller densities in her bilateral lung whitt. The concern for the workup is that this might be a malignancy. If it's not a malignancy, then it may be related to her Castleman's disease which she has chosen not to treat for roughly 1-1/2 years. The biopsies were negative. There were no significant findings on microbiology and therefore this was believed to be related to her Castleman's disease. There is significant discussion with her about doing a lymph node biopsy and she has a dominant left axillary lymph node which might be amenable to biopsy. Unfortunately, after her left axillary biopsy in 2008 she developed an upper extremity DVT and she is loath to consider another axillary biopsy. Based on information available it was recommended she start with rituximab infusions. The hope was that she will be able to start them prior to discharge, however, because it is the weekend it will be at least another two days before she is able to get these. She chose to be discharged today and to return in two days for her rituximab infusion in outpatient infusion at the [facility]. Dr. Perez is aware of the fact that she is coming for outpatient infusion in two days and has prepared for her rituximab infusions. DISCHARGE CONDITION: Stable, but requiring oxygen which is not chronic for her. FOLLOW-UP: Prior to discharge an appointment was scheduled with Dr. Yovani Stout on 04/30/2019 at 3:45. DIET: Regular. ACTIVITY: As tolerated. DISCHARGE MEDICATIONS: Please see below. ALLERGIES: Please see below. LABORATORY DATA: Please see below. IMAGING: Chest x-ray, lower extremity DVT ultrasound, CT angiogram of the chest. DISCHARGE INSTRUCTIONS: 1. Please report to the [facility] on 04/26/19 at 8 AM for your rituximab infusion. 2. Follow-up with Dr. Hernandez's office in about two weeks per her instructions. TIME SPENT ON DISCHARGE: Greater than 40 minutes. Vital Signs/I&Os Vital Signs Date Time Temp Pulse Resp B/P (MAP) Pulse Ox O2 Delivery O2 Flow Rate FiO2 04/24/19 06:00 97.6 100 20 112/57 (75) 93 Nasal Cannula 3.0 I&O- Last 24 Hours up to 6 AM 04/24/19 06:00 Intake Total 255 ml Output Total 400 ml Balance -145 ml Laboratory Data Labs 24H Laboratory Tests 2 04/24/19 05:34: Nucleated Red Blood Cells % (auto) 0.0, Anion Gap 7L, Glomerular Filtration Rate > 60.0, Calcium Level 8.0L CBC/BMP Laboratory Tests 04/24/19 05:34 Microbiology Microbiology 04/22/19 Gram Stain - Final, Resulted 04/22/19 Sputum Culture, Resulted Pending 04/21/19 Acid Fast Stain - Final, Resulted 04/21/19 Mycobacterial Culture, Resulted Pending 04/21/19 Respiratory Virus Panel (PCR) (CODIE) - Final, Complete 04/21/19 Gram Stain - Final, Complete 04/21/19 Sputum Culture - Final, Complete 04/20/19 Blood Culture - Preliminary, Resulted No Growth after 72 hours. All specime... 04/20/19 Blood Culture - Preliminary, Resulted No Growth after 72 hours. All specime... 04/20/19 Blood Culture - Preliminary, Resulted No Growth after 72 hours. All specime... Discharge Medications Scheduled 0.9 % Sodium Chloride (Normal Saline Flush) 10 Ml Syringe, 30 SYRINGE IV ASDIRECTED FLUSH DAILY PRIOR TO HEPARIN Ascorbic Acid (Vitamin C) 500 Mg Tablet, 500 MG PO DAILY, (Reported) Cholecalciferol (Vitamin D3) (Vitamin D3) 1,000 Unit Tablet, 1,000 UNIT PO DAILY, (Reported) Heparin Sodium,Porcine/Pf (Heparin 200 Unit/2 ml (100/ml)) 200 Unit/2 Ml S yringe, 30 SYRINGE IV ASDIRECTED FLUSH DAILY AFTER SALINE FLUSH Levothyroxine Sodium (Levoxyl) 50 Mcg Tablet, 50 MCG PO DAILY, (Reported) Scheduled PRN Albuterol Sulfate (Ventolin Hfa) 18 Gm Hfa.aer.ad, 2 PUFF INH Q6H PRN for SHORTNESS OF BREATH, (Reported) Naproxen Sodium (Aleve) 220 Mg Tablet, 220 MG PO BID PRN for PAIN, (Reported) [symbicort] , INH BIDP PRN for SHORTNESS OF BREATH, (Reported) Allergies Coded Allergies: Sulfa (Sulfonamide Antibiotics) (Verified Allergy, Mild, rash, 04/20/19) Yovani Stout MD Apr 24, 2019 12:31
--- NOTE | 2019-04-24 17:01 | IPN ---
DATE: 04/24/2019 NOTE: Ms. Willett has Castleman disease, which has progressed off therapy and felt to be responsible for her chest CT findings as well as her increased shortness of breath and hypoxemia. When I left yesterday, the plan had been that she would receive rituxan this morning. I had discussions with Dr. Perez and he had informed me that any adverse reaction would be early in the infusion and that she could be discharged after the infusion. When I arrived this morning, I learned that the infusion had originally been moved up to be given last evening, but then ultimately was cancelled by hematology. Part of the discussions yesterday were that could she have the infusion on Friday but it was not certain that she had preauthorization, which is the reason for getting it done while she was inpatient. I spent considerable time talking with the nursing spring up supervisor this morning. I also had conversations with Dr. Pittman. Ultimately, it was determined that she is scheduled for the infusion on Friday at 08:00 a.m. and she has preauthorization. I spoke to Ms. Willett and her family and apologized for the confusion. They had been informed that the infusion was being moved to last evening and that was cancelled, but not informed of the followup plan. They are in agreement with the plan outlined above. I also spoke with Dr. Stout regarding these conversations, and she will discharged today on oxygen. We will have her follow up with Dr. Padilla in approximately two weeks, predominately to make certain that her oxygen supplementation is appropriate, as well as review of her symptomology. I encourage Ms. Willett to contact the pulmonary clinic sooner if she had worsened difficulties or to return to the emergency department. Total time: Greater than 25 minutes involved in the above conversations with both providers, other providers, nursing spring up supervisor and Ms. Willett and her family. OSVALDO
[2019-04-24] MEDS ORDERED: HEPARIN SOD (PORCINE) 5000 UNITS/ML VIAL (J1644 PER 1000UNITS) IV SCH (21:00)
[2019-04-26] MEDS ORDERED: HEPA100I8 IV (15:44)
[2019-04-26] MEDS ORDERED: [UNRECOGNIZED DRUG - SUPPLY] (15:44)
[2019-04-26] MEDS ORDERED: ALCO1MED8 (15:44)
[2019-04-26] MEDS ORDERED: BD P0.9I2 IV (15:46)
[2019-05-05] MEDS ORDERED: symbicort INH (08:25)
== END 2019-04-24 15:05 | disposition home or self-care (01) | DRG 842 ==
LOC: M ED 12:48 → M ED INP 17:02 → ENRESERV 18:22 → M MSPAV 18:42
PROVIDERS: ADMIT Internal Medicine; ATTEND Family Medicine
PROC: 02HV33Z Insertion of Infusion Device into Superior Vena Cava, Percutaneous Approach (ICD-10-PCS; principal; 2019-04-22 11:30)
DX: D47.Z2 Castleman disease (principal); N18.9 Chronic kidney disease, unspecified; E03.9 Hypothyroidism, unspecified; M06.9 Rheumatoid arthritis, unspecified; Z79.899 Other long term (current) drug therapy; Z88.2 Allergy status to sulfonamides; R09.02 Hypoxemia; Z86.718 Personal history of other venous thrombosis and embolism

== ENCOUNTER → 2019-08-11 | Outpatient (CLI) | payer MEDICARE, OTHER ==
[~2019-08-11] MED LIST changes: +ALCO1MED8; +BD P0.9I2 IV; +C 50TAB PO; +CYAN2500 SL; +HEPA100I8 IV; +LEVO50TA45 PO; +VITA100054 PO; +VITA100066 PO; +VITAD1000T PO; +[UNRECOGNIZED DRUG - SUPPLY]; +symbicort INH
--- NOTE | 2019-08-11 17:05 | REP ---
CT CHEST WITHOUT CONTRAST: HISTORY: Other nonspecific lung field finding. COMPARISON: Chest CT study, April 20, 2019. There is a history of Castleman disease and rheumatoid arthritis. CT FINDINGS: There has been a notable improvement in the pulmonary parenchymal disease findings in the interval since the last exam, April 20, 2019. There is still extensive, in fact, innumerable pulmonary nodular opacities, and a peribronchovascular mass-like opacity persists in the left upper lobe, however, these findings are improved. There is improved aeration of the lungs generally. A small area of confluent opacification persists in the left lower lobe in addition to the larger area in the left upper lobe. There are small patchy areas of consolidation in the upper lobes anteriorly on both sides, also improved. There is no evidence of pleural or pericardial effusion. Mediastinal lymphadenopathy is significantly improved as well. No new adenopathy is seen. IMPRESSION: Notable improvement in the pulmonary parenchymal and mediastinal findings since the April 20, 2019 study. Electronically Signed by Brendan Mora MD 08/11/2019 05:07 P
== END ==
LOC: M RAD 16:07
PROVIDERS: ATTEND Internal Medicine Pulmonary Disease
DX: R91.8 Other nonspecific abnormal finding of lung field (principal); D47.Z2 Castleman disease; M06.9 Rheumatoid arthritis, unspecified

== ENCOUNTER → 2020-02-16 | Outpatient (REF) | payer MEDICARE, OTHER ==
[~2020-02-16] MED LIST changes: +D31000TA2 PO; -VITAD1000T PO
[2020-02-16 14:09] LABS: HEMATOCRIT 49.2 % (36.0-47.0); HEMOGLOBIN 15.5 g/dl (12.0-15.5); MEAN CORPUSCULAR HEMOGLOBIN 27.7 pg (27.0-33.0); MEAN CORPUSCULAR HGB CONC 31.5 g/dl (32.0-36.5); PLATELET COUNT, AUTOMATED 222 10^3/uL (150-450); RED BLOOD COUNT 5.59 10^6/uL (4.00-5.40); WHITE BLOOD COUNT 4.5 10^3/uL (4.0-10.0)
[2020-02-16 19:23] LABS: ALBUMIN 4.5 GM/DL (3.2-5.2); ALT/SGPT 27 U/L (12-78); BILIRUBIN,TOTAL 0.8 MG/DL (0.2-1.0); BLOOD UREA NITROGEN 15 MG/DL (7-18); CALCIUM LEVEL 9.5 MG/DL (8.5-10.1); CARBON DIOXIDE LEVEL 28 MEQ/L (21-32); CHLORIDE LEVEL 106 MEQ/L (98-107); CREATININE FOR GFR 0.67 MG/DL (0.55-1.30); GLOMERULAR FILTRATION RATE > 60.0 (>51); GLUCOSE, FASTING 61 MG/DL (70-100); POTASSIUM SERUM 4.4 MEQ/L (3.5-5.1); SODIUM LEVEL 141 MEQ/L (136-145); TOTAL 25(OH) VITAMIN D 30.6 NG/ML (30.0-100.0); TOTAL PROTEIN 7.1 GM/DL (6.4-8.2)
== END ==
LOC: M SFHCPLAZ 12:28
PROVIDERS: ATTEND Family Medicine
DX: D75.1 Secondary polycythemia (principal); N18.2 Chronic kidney disease, stage 2 (mild); E55.9 Vitamin D deficiency, unspecified; E03.9 Hypothyroidism, unspecified; Z79.899 Other long term (current) drug therapy

== ENCOUNTER → 2020-06-09 | Outpatient (CLI) | payer MEDICARE, OTHER ==
--- NOTE | 2020-06-09 17:47 | REP ---
INDICATION: OTHER NONSPECIFIC ADNORMAL FINDING OF LUNG FIELD. PREVIOUS REPORTS DESCRIBED HISTORY OF CASTLEMAN DISEASE AND RHEUMATOID ARTHRITIS. COMPARISON: CT 08/11/2019, CT angio 04/20/2019, 02/11/2019 TECHNIQUE: Noncontrast images through the chest with coronal and sagittal reconstructions FINDINGS: The pattern of a diffuse reticulonodular interstitial opacities throughout the lung whitt shows further improvement progressively over the past 3 previous scans. There is now only a trace amount of the a pleural-based parenchymal opacity confluent in the deep sulcus left lower lobe. There is further decrease in size of the more confluent opacity in the left upper lobe which has air bronchograms within it and masslike appearance with irregular stranding. I do not see definite new consolidative opacities or nodules. There is some bronchiectasis evident. No pleural effusion. No pneumothorax. The heart is not enlarged. There is no pericardial effusion. Thoracic aorta shows a few calcifications in the arch and descending portion without aneurysm. Mediastinal nodes show largest AP window node 7.7 mm with the precarinal node 8 mm and with these findings similar previous study, much improved from initial scans. The upper abdomen shows that portion of liver, spleen, pancreas and upper pole left kidney intact. Adrenal glands grossly intact. Stomach unremarkable with no hiatal hernia. Bone windows show no focal lesion or acute finding there are some degenerative changes of the shoulders. IMPRESSION: 1. There is further improvement in the pulmonary parenchymal reticulonodular opacities progressively over the last 3 scans appearance. There is still some persistence of masslike opacity in the left upper lobe but smaller and further decrease in size of the confluent opacity along the pleura in the deep sulcus left lower lobe. Some curvilinear fibrotic changes as before and no pleural effusion or pneumothorax. 2. Small mediastinal nodes unchanged from previous study, improved from the 05/03 and 01/30 exams. Bony thorax without acute finding. Nothing acute in the visible upper abdomen. <Electronically signed by Gee Ferrer > 06/09/20 [id number]
== END ==
LOC: M RAD 09:45
PROVIDERS: ATTEND Internal Medicine Pulmonary Disease
DX: R91.8 Other nonspecific abnormal finding of lung field (principal)

== ENCOUNTER → 2020-09-22 | Outpatient (CLI) | payer MEDICARE, OTHER ==
--- NOTE | 2020-09-22 15:46 | REPMRS ---
Patient History The patient states she has not had a clinical breast exam in over a year. Patient is postmenopausal and had first child at age 34. Family history of colorectal cancer at age 70 in maternal aunt. Moderna vaccine 07/29/20 right arm. 08/28/20 right arm. 8lb unintentional weight gain. Patient states no breast complaints today. Patient has signed MRS History Sheet. Digital Woman Screen Mammo: September 22, 2020 - Exam #: [id number] Bilateral CC and MLO view(s) were taken. Technologist: RT Navdeep Prior study comparison: November 15, 2016, bilateral digital mammo screening bilat, performed at [facility]. July 07, 2013, bilateral digital mammo screening bilat, performed at [facility]. FINDINGS: There are scattered fibroglandular densities. Screening. Digital screening (2D) mammography was performed bilaterally in the CC and MLO projections. Additionally, breast tomosynthesis (3D mammography) was performed bilaterally in the CC and MLO projections. Todays exam was compared to the prior exam/exams. By history, the patient has no complaints of a palpable breast abnormality or other significant breast complaints. The breasts are unchanged in size and shape. There are no charissa-soft tissue densities or spiculated masses. There is no internal architectural distortion. Once again, stable benign appearing calcifications are seen.There are no suspicious charissa-calcific clusters. Skin thickening or nipple retraction is not present. IMPRESSION: BI-RADS Category 2- Benign Findings. There is no evidence of malignant alteration of the breasts. Followup examination recommended in one year. The Volpara volumetric breast density category is B, there are scattered areas of fibroglandular density. This mammogram was read with [facility],an FDA approved computer aided detection system for mammography. The lifetime Tyrer-Cuzick score is 10.4 % Negative x-ray reports should not delay surgical consultation if a dominant or clinically suspicious mass is present. Not all breast cancers can be identified by mammography. Therefore, we recommend that you continue to perform regular breast self-examination and physical examination and then promptly contact your physician of any concerns or changes. Adenosis and dense breasts may obscure an underlying neoplasm. Assessment: BI-RADS/ACR category 2 mammogram. Benign Findings. Recommendation Routine screening mammogram of both breasts in 1 year. Electronically Signed By: Javier Trujillo DO 09/22/20 [id number]
--- NOTE | 2020-09-22 18:18 | DEXAMM ---
INDICATION: Z13.820 SCREENING FOR OSTEOPOROSIS,RHEUMATOID ARTHRITIS. COMPARISON: 09/21/2018, 07/04/2006. TECHNIQUE: Bone density was measured using dual-energy x-ray absorptiometry (DEXA). FINDINGS: AP SPINE L1-L4 BMD 0.979 g/cm2 Young Adult T-Score -1.8 Age Matched Z-Score -0.6. LT FEMUR, TOTAL BMD 0.720 g/cm2 Young Adult T-Score -2.3 Age Matched Z-Score -1.4. LT NECK BMD 0.806 g/cm2 Young Adult T-Score -1.7 Age Matched Z-Score -0.4. RT FEMUR, TOTAL BMD 0.765 g/cm2 Young Adult T-Score -1.9 Age Matched Z-Score -1.0. RT NECK BMD 0.822 g/cm2 Young Adult T-Score -1.6 Age Matched Z-Score -0.3. IMPRESSION: There is low bone density of the spine. There is low bone density of the left hip. There is low bone density of the right hip. The density of the spine has decreased 24.0% since the initial exam on 07/04/2006. The density of the spine decreased 4.3% since most recent exam on 09/21/2018. The density of the left hip has decreased 18.2% since initial exam on 07/04/2006. The density of the left hip has decreased 1.6% since most recent exam on 09/21/2018. The density of the right hip has decreased 17.7% since the initial exam on 07/04/2006. The density of the right hip has increased 1.1% since the most recent exam on 09/21/2018. FOLLOW-UP: Recommendation for the next bone density exam: 2 years. <Electronically signed by Shay Bullock > 09/22/20 [id number]
== END ==
LOC: M WHC 13:43
PROVIDERS: ATTEND Family Medicine
DX: Z12.31 Encounter for screening mammogram for malignant neoplasm of breast (principal); Z13.820 Encounter for screening for osteoporosis; R59.9 Enlarged lymph nodes, unspecified; M06.041 Rheumatoid arthritis without rheumatoid factor, right hand; Z78.0 Asymptomatic menopausal state; Z80.8 Family history of malignant neoplasm of other organs or systems; M85.89 Other specified disorders of bone density and structure, multiple sites

== ENCOUNTER → 2021-08-13 | Outpatient (REF) | payer MEDICARE, OTHER ==
[~2021-08-13] MED LIST changes: -D31000TA2 PO; +VITA100093 PO; +vitamin B complex
[2021-08-13 13:37] LABS: THYROID STIMULATING HORMONE 1.3 uIU/ML (0.358-3.740)
[2021-08-13 13:45] LABS: TOTAL 25(OH) VITAMIN D 21.3 NG/ML (30.0-100.0)
== END ==
LOC: M SFHCADAM 08:21
PROVIDERS: ATTEND Family Medicine
DX: E03.9 Hypothyroidism, unspecified (principal); E55.9 Vitamin D deficiency, unspecified; Z79.899 Other long term (current) drug therapy

== ENCOUNTER → 2021-08-31 | Outpatient (REF) | payer MEDICARE, OTHER | LOC: M SFHCPLAZ 14:56 | PROVIDERS: ATTEND Family Medicine | DX: D58.2 Other hemoglobinopathies (principal); M06.041 Rheumatoid arthritis without rheumatoid factor, right hand ==

== ENCOUNTER → 2021-09-12 | Outpatient (CLI) | payer MEDICARE, OTHER ==
[2021-09-12 10:12] LABS: HEMATOCRIT 49.1 % (36.0-47.0); HEMOGLOBIN 15.6 g/dl (12.0-15.5); MEAN CORPUSCULAR HEMOGLOBIN 28.1 pg (27.0-33.0); MEAN CORPUSCULAR HGB CONC 31.8 g/dl (32.0-36.5); MEAN CORPUSCULAR VOLUME 88.5 fl (80.0-96.0); PLATELET COUNT, AUTOMATED 240 10^3/uL (150-450); RED BLOOD COUNT 5.55 10^6/uL (4.00-5.40); WHITE BLOOD COUNT 4.8 10^3/uL (4.0-10.0)
[2021-09-12 10:39] LABS: ERYTHROCYTE SEDIMENTATION RATE 1 mm/hr (0-30)
[2021-09-12 10:41] LABS: C REACTIVE PROTEIN QUANTITATIV < 0.30 MG/DL (0.00-0.30); LDH LACTATE DEHYDROGENASE 210 U/L (84-246)
== END ==
LOC: M RAD 08:47
PROVIDERS: ATTEND Family Medicine
DX: D58.2 Other hemoglobinopathies (principal); M06.041 Rheumatoid arthritis without rheumatoid factor, right hand

== ENCOUNTER → 2022-03-05 | Outpatient (CLI) | payer MEDICARE, OTHER ==
[~2022-03-05] MED LIST changes: +METHACHOLINE KIT (J7674) INH ONE
== END ==
LOC: M CARPUL 08:46
PROVIDERS: ATTEND Internal Medicine Pulmonary Disease
DX: R06.02 Shortness of breath (principal)
CPT/HCPCS: 94070; 95070; J7674

== ENCOUNTER → 2023-02-18 | Outpatient (REF) | payer MEDICARE, OTHER ==
[~2023-02-18] MED LIST changes: -HEPA100I8 IV; -METHACHOLINE KIT (J7674) INH ONE; +[UNRECOGNIZED DRUG - CODE] IV
[2023-02-18 13:42] LABS: C REACTIVE PROTEIN QUANTITATIV < 0.40 MG/DL (<1.0)
[2023-02-18 13:44] LABS: ALBUMIN 4.2 G/DL (3.2-5.2); ALKALINE PHOSPHATASE 62 U/L (46-116); ALT/SGPT 18 U/L (7.0-40); AST/SGOT 20 U/L (<34); BILIRUBIN,TOTAL 0.7 MG/DL (0.3-1.2); BLOOD UREA NITROGEN 16 MG/DL (9-23); CALCIUM LEVEL 9.4 MG/DL (8.3-10.6); CARBON DIOXIDE LEVEL 26 MMOL/L (20-31); CHLORIDE LEVEL 107 MMOL/L (98-107); CHOLESTEROL LEVEL 257 MG/DL (<200); CHOLESTEROL RISK RATIO 4.33 (<5); CREATININE FOR GFR 0.66 MG/DL (0.55-1.30); GLOMERULAR FILTRATION RATE > 60.0 (>45); GLUCOSE, FASTING 81 MG/DL (74-106); HDL CHOLESTEROL 59.3 MG/DL (>40); HEMATOCRIT 49.5 % (36.0-47.0); HEMOGLOBIN 15.7 g/dl (12.0-15.5); LDL CHOLESTEROL 177.7 MG/DL (<100); MEAN CORPUSCULAR HGB CONC 31.7 g/dl (32.0-36.5); MEAN CORPUSCULAR VOLUME 88.2 fl (80.0-96.0); NON-HDL-C 197.7 MG/DL; PLATELET COUNT, AUTOMATED 227 10^3/uL (150-450); POTASSIUM SERUM 4.5 MMOL/L (3.5-5.1); RED BLOOD COUNT 5.61 10^6/uL (4.00-5.40); SODIUM LEVEL 143 MMOL/L (136-145); TOTAL 25(OH) VITAMIN D 28.8 NG/ML (20.0-100.0); TOTAL PROTEIN 6.4 G/DL (5.7-8.2); TRIGLYCERIDES LEVEL 100 MG/DL (<150); WHITE BLOOD COUNT 4.8 10^3/uL (4.0-10.0)
[2023-02-18 13:45] LABS: THYROID STIMULATING HORMONE 1.759 uIU/ML (0.55-4.78)
== END ==
LOC: M SFHCADAM 08:15
PROVIDERS: ATTEND Family Medicine
DX: R59.9 Enlarged lymph nodes, unspecified (principal); N18.2 Chronic kidney disease, stage 2 (mild); E78.00 Pure hypercholesterolemia, unspecified; M06.041 Rheumatoid arthritis without rheumatoid factor, right hand; E03.9 Hypothyroidism, unspecified; M85.89 Other specified disorders of bone density and structure, multiple sites

== ENCOUNTER → 2023-09-19 | Outpatient (CLI) | payer MEDICARE, OTHER | LOC: M WHC 07:29 | PROVIDERS: ATTEND Family Medicine | DX: Z12.31 Encounter for screening mammogram for malignant neoplasm of breast (principal) ==

== ENCOUNTER → 2024-02-10 | Outpatient (REF) | payer MEDICARE, OTHER ==
[2024-02-10 13:46] LABS: HEMATOCRIT 49.2 % (36.0-47.0); HEMOGLOBIN 15.7 g/dl (12.0-15.5); MEAN CORPUSCULAR HGB CONC 31.9 g/dl (32.0-36.5); MEAN CORPUSCULAR VOLUME 87.7 fl (80.0-96.0); PLATELET COUNT, AUTOMATED 240 10^3/uL (150-450); RED BLOOD COUNT 5.61 10^6/uL (4.00-5.40); WHITE BLOOD COUNT 5.1 10^3/uL (4.0-10.0)
[2024-02-10 13:55] LABS: THYROID STIMULATING HORMONE 1.872 uIU/ML (0.55-4.78); TOTAL 25(OH) VITAMIN D 41.7 NG/ML (20.0-100.0)
[2024-02-10 13:57] LABS: ALBUMIN 4.1 G/DL (3.2-5.2); ALKALINE PHOSPHATASE 61 U/L (35-104); ALT/SGPT 16 U/L (7.0-40); AST/SGOT 15 U/L (<34); BILIRUBIN,TOTAL 0.6 MG/DL (0.3-1.2); BLOOD UREA NITROGEN 14 MG/DL (9-23); CALCIUM LEVEL 9.9 MG/DL (8.3-10.6); CARBON DIOXIDE LEVEL 26 MMOL/L (20-31); CHLORIDE LEVEL 109 MMOL/L (98-107); CHOLESTEROL LEVEL 250 MG/DL (<200); CHOLESTEROL RISK RATIO 5.11 (<5); CREATININE FOR GFR 0.68 MG/DL (0.55-1.30); GLOMERULAR FILTRATION RATE > 60.0 (>45); GLUCOSE, FASTING 77 MG/DL (74-106); HDL CHOLESTEROL 48.9 MG/DL (>40); LDL CHOLESTEROL 176.5 MG/DL (<100); NON-HDL-C 201.1 MG/DL; POTASSIUM SERUM 4.4 MMOL/L (3.5-5.1); SODIUM LEVEL 142 MMOL/L (136-145); TOTAL PROTEIN 6.4 G/DL (5.7-8.2); TRIGLYCERIDES LEVEL 123 MG/DL (<150)
== END ==
LOC: M SFHCADAM 08:52
PROVIDERS: ATTEND Family Medicine
DX: R59.9 Enlarged lymph nodes, unspecified (principal); D75.1 Secondary polycythemia; E55.9 Vitamin D deficiency, unspecified; E78.00 Pure hypercholesterolemia, unspecified; N18.2 Chronic kidney disease, stage 2 (mild); E03.9 Hypothyroidism, unspecified

== ENCOUNTER → 2024-10-22 | Outpatient (REF) | payer MEDICARE, OTHER ==
[~2024-10-22] MED LIST changes: +ATOR1TAB21
[2024-10-22 16:28] LABS: APPEARANCE, URINE CLEAR (CLEAR); BACTERIA, URINE AUTO NEGATIVE (NEGATIVE); BILIRUBIN, URINE AUTO NEGATIVE (NEGATIVE); BLOOD, URINE BLOOD 3+ (NEGATIVE); GLUCOSE, URINE (UA) AUTO NEGATIVE (NEGATIVE); KETONE, URINE AUTO NEGATIVE (NEGATIVE); LEUKOCYTE ESTERASE, URINE AUTO NEGATIVE (NEGATIVE); MUCUS, URINE SMALL (NEGATIVE); NITRITE, URINE AUTO NEGATIVE (NEGATIVE); PROTEIN, URINE AUTO NEGATIVE (NEGATIVE); RBC, URINE AUTO 0 /HPF (0-3); SPECIFIC GRAVITY URINE AUTO 1.002 (1.002-1.035); SQUAMOUS EPITHELIAL CELL UR AU 0 /HPF (0-6); UROBILINOGEN, URINE AUTO 0.2 mg/dL (0.0-2.0); WBC, URINE AUTO 1 /HPF (0-3)
== END ==
LOC: M SFHCPLAZ 15:27
DX: R31.9 Hematuria, unspecified (principal)

== ENCOUNTER → 2024-11-30 | Outpatient (CLI) | payer MEDICARE, OTHER ==
[2024-11-30 10:50] LABS: APPEARANCE, URINE CLEAR (CLEAR); BACTERIA, URINE AUTO NEGATIVE (NEGATIVE); BILIRUBIN, URINE AUTO NEGATIVE (NEGATIVE); BLOOD, URINE BLOOD 3+ (NEGATIVE); GLUCOSE, URINE (UA) AUTO NEGATIVE (NEGATIVE); KETONE, URINE AUTO NEGATIVE (NEGATIVE); LEUKOCYTE ESTERASE, URINE AUTO NEGATIVE (NEGATIVE); MUCUS, URINE SMALL (NEGATIVE); NITRITE, URINE AUTO NEGATIVE (NEGATIVE); PROTEIN, URINE AUTO NEGATIVE (NEGATIVE); RBC, URINE AUTO 1 /HPF (0-3); SPECIFIC GRAVITY URINE AUTO 1.002 (1.002-1.035); SQUAMOUS EPITHELIAL CELL UR AU 0 /HPF (0-6); UROBILINOGEN, URINE AUTO 0.2 mg/dL (0.0-2.0); WBC, URINE AUTO 0 /HPF (0-3)
[2024-11-30 10:59] LABS: PLATELET COUNT, AUTOMATED 251 10^3/uL (150-450)
[2024-11-30 11:19] LABS: CALCIUM LEVEL 9.4 MG/DL (8.3-10.6); CARBON DIOXIDE LEVEL 28.0 MMOL/L (20-31); CHLORIDE LEVEL 106.0 MMOL/L (98-107); CREATININE FOR GFR 0.77 MG/DL (0.55-1.30); GLOMERULAR FILTRATION RATE 86.6 (>45); POTASSIUM SERUM 4.0 MMOL/L (3.5-5.1); SODIUM LEVEL 144.0 MMOL/L (136-145)
== END ==
LOC: M LAB 09:56
PROVIDERS: ATTEND Physician Assistant
DX: Z01.818 Encounter for other preprocedural examination (principal); N39.0 Urinary tract infection, site not specified

== ENCOUNTER 2024-12-10 07:34 | Day surgery (SDC) | payer MEDICARE, OTHER ==
[2024-12-09] MEDS: ceFAZolin SOD 2 GM IV ONCE IV ONE (09:43)
[~2024-12-10] VITALS: Ht 165.1 cm; Wt 55.8 kg
[~2024-12-10 07:34] MED LIST changes: -ATOR1TAB21; +ATOR1TAB21 PO; +MULTTAB61 PO; +RITU1INJ SC; +TAMS1CAP17 PO; +VITA1TAB82 PO
[2024-12-10] MEDS: LR 1,000 ML IV SCH (07:55)
[2024-12-10] MEDS ORDERED: MIDAZOLAM INJ 2 MG/2 ML VIAL As Ordered ONE (08:07)
[2024-12-10] MEDS ORDERED: ONDANSETRON 4MG 2ML VIAL As Ordered ONE (08:07)
[2024-12-10] MEDS ORDERED: dexAMETHasone 4 MG/ML 1 ML VIAL As Ordered ONE (08:07)
[2024-12-10] MEDS ORDERED: LIDOCAINE 2% 100 MG/5 ML SDV (FOR ANES.) As Ordered ONE (08:07)
[2024-12-10] MEDS ORDERED: dexmedeTOMIDine (4 MCG/ML) 200 MCG/50 ML BTL As Ordered ONE (09:20)
[2024-12-10] MEDS: ISOVUE-300 61% 100 ML VIAL As Ordered ONE (09:54)
[2024-12-10] MEDS: ceFAZolin SOD 2 GM IV ONCE IV ONE (09:58)
[2024-12-10] MEDS ORDERED: ACETAMINOPHEN 1000MG/100ML IV BAG As Ordered ONE (09:59)
[2024-12-10] MEDS ORDERED: PHENYLephrine 500MCG 5ML (100MCG/ML) SYRINGE As Ordered ONE (10:02)
[2024-12-10] MEDS ORDERED: ONDANSETRON 4MG 2ML VIAL IV PRN (10:25)
[2024-12-10] MEDS ORDERED: OXYC1TAB23 PO (10:45)
[2024-12-10] MEDS ORDERED: OXYB5TAB14 PO (10:45)
[2024-12-10] MEDS ORDERED: PERCOCET 5MG/325MG TAB PO PRN (11:05)
[2024-12-10 12:04] VITALS: BP 110/56; TEMP 96.9; O2SAT 98
== END 2024-12-10 12:03 | disposition home or self-care (01) ==
LOC: M SDC 07:34
PROVIDERS: ATTEND Urology
DX: N13.2 Hydronephrosis with renal and ureteral calculous obstruction (principal); N18.2 Chronic kidney disease, stage 2 (mild); E03.9 Hypothyroidism, unspecified; E78.00 Pure hypercholesterolemia, unspecified; J45.909 Unspecified asthma, uncomplicated; Z79.899 Other long term (current) drug therapy; Z86.718 Personal history of other venous thrombosis and embolism; Z79.890 Hormone replacement therapy; Z92.21 Personal history of antineoplastic chemotherapy; M06.9 Rheumatoid arthritis, unspecified; D47.Z2 Castleman disease; Z98.51 Tubal ligation status; Z88.2 Allergy status to sulfonamides
CPT/HCPCS: 52356; 74420; 82365; C1769; C1894; C2617; J0131; J0690; J1100; J2250; J2371; J2405; J3010; Q9967

== ENCOUNTER → 2024-12-30 | Outpatient (CLI) | payer MEDICARE, OTHER ==
[~2024-12-30] MED LIST changes: +OXYB5TAB14 PO; +OXYC1TAB23 PO
== END ==
LOC: M PLAIMG 13:23
PROVIDERS: ATTEND Student in an Organized Health Care Education/Training Program
DX: D64.9 Anemia, unspecified (principal)